=== PATIENT | male | born 1960 | race Caucasian/White ===

== ENCOUNTER 2016-05-13 17:42 | Emergency (ER) | payer MEDICAID ==
[2014-01-20 03:39] VITALS: BMI 24.7
[~2016-05-13 17:42] MED LIST: AMBIEN10 MG PO; ASPIRIN325 MG PO; LISINOPRIL10 MG GT; LISINOPRIL10 MG PO
[2016-05-13 18:18] LABS: BASOPHILS 0.7 % (0.0-2.0); EOSINOPHILS 0.2 % (0-7); HEMATOCRIT 37.7 % (42.0-54.0); HEMOGLOBIN 12.7 g/dL (13.5-17.5); IMMATURE GRANULOCYTES 0.5 % (0-5); LYMPHOCYTES 30.2 % (15-50); MCH 36.2 pg (26.0-34.0); MCHC 33.7 g/dL (31.0-37.0); MCV 107.4 fL (80.0-100.0); MEAN PLATELET VOLUME 9.5 fL (7.4-10.4); MONOCYTES 13.7 % (2-11); NEUTROPHILS 54.7 % (40-80); PLATELET COUNT 158 10x3/uL (130-400); RBC 3.51 10x6/uL (4.20-6.10); RDW 13.4 % (11.5-14.5); WBC 4.2 10x3/uL (4.8-10.8)
[2016-05-13 18:26] LABS: APTT 25.4 SECONDS (22.8-39.4); INR 1.03 (0.85-1.17); PROTIME 13.3 SECONDS (11.6-15.0)
[2016-05-13 18:32] LABS: ALBUMIN 4.3 g/dL (3.4-5.0); ALKALINE PHOSPHATASE 70 U/L (46-116); ALT (SGPT) 106 U/L (10-68); BILIRUBIN - TOTAL 1.44 mg/dL (0.2-1.3); CALC OSMOLALITY 277 mosm/kg (275-300); CALCIUM 8.7 mg/dL (8.5-10.1); CARBON DIOXIDE 22.5 mmol/L (21.0-32.0); CHLORIDE - SERUM 97 mmol/L (98-107); GLUCOSE 118 mg/dL (74-106); POTASSIUM - SERUM 3.2 mmol/L (3.5-5.1); PROTEIN - SERUM 7.5 g/dL (6.4-8.2); SODIUM 140 mmol/L (136-145); UREA NITROGEN 7 mg/dL (7-18); eGFR NON AFRICAN AMERICAN 82 mL/min (90-120)
== END 2016-05-13 20:06 | disposition home or self-care (01) ==
LOC: D.ER 17:42
PROVIDERS: Emergency Medicine
DX: I63.9 Cerebral infarction, unspecified (principal)

== ENCOUNTER 2018-04-02 20:48 | Inpatient (IN) | payer MEDICAID ==
[~2018-04-02] VITALS: Ht 182.9 cm; Wt 80.5 kg
[2018-04-02 21:35] VITALS: BP 147/90
[2018-04-02 23:50] LABS: HEMATOCRIT 30.9 % (42.0-54.0); HEMOGLOBIN 11.2 g/dL (13.5-17.5); LYMPHOCYTES 19.6 % (15-50); MCH 39.2 pg (26.0-34.0); MCHC 36.2 g/dL (31.0-37.0); MEAN PLATELET VOLUME 8.8 fL (7.4-10.4); NEUTROPHILS 69.4 % (40-80); PLATELET COUNT 133 10x3/uL (130-400); RBC 2.86 10x6/uL (4.20-6.10); RDW 14.6 % (11.5-14.5); WBC 6.3 10x3/uL (4.8-10.8)
[2018-04-03] VITALS (11 sets, daily range): BP systolic 109–159; BP diastolic 72–110; BMI 23.1
[2018-04-03 00:02] LABS: ALBUMIN 3.6 g/dL (3.4-5.0); ALKALINE PHOSPHATASE 68 U/L (46-116); ALT (SGPT) 32 U/L (10-68); BILIRUBIN - TOTAL 1.18 mg/dL (0.2-1.3); CALC OSMOLALITY 269 mosm/kg (275-300); CALCIUM 8.3 mg/dL (8.5-10.1); CARBON DIOXIDE 31.2 mmol/L (21.0-32.0); CHLORIDE - SERUM 92 mmol/L (98-107); GLUCOSE 98 mg/dL (74-106); PHOSPHOROUS 3.8 mg/dL (2.5-4.9); PROTEIN - SERUM 7.2 g/dL (6.4-8.2); SODIUM 135 mmol/L (136-145); UREA NITROGEN 13 mg/dL (7-18); eGFR NON AFRICAN AMERICAN 82 mL/min (90-120)
[2018-04-03 00:04] LABS: APPEARANCE CLEAR (CLEAR); BILIRUBIN NEGATIVE (NEGATIVE); COLOR YELLOW (YELLOW); GLUCOSE NEGATIVE (NEGATIVE); KETONE NEGATIVE (NEGATIVE); NITRITE NEGATIVE (NEGATIVE); PROTEIN NEGATIVE (NEGATIVE); SPECIFIC GRAVITY 1.015 (1.005-1.020); UDS - AMPHET POSITIVE QUAL (NEGATIVE); UDS - BARB NEGATIVE QUAL (NEGATIVE); UDS - BENZO POSITIVE QUAL (NEGATIVE); UDS - COCAINE NEGATIVE QUAL (NEGATIVE); UDS - OPIATE NEGATIVE QUAL (NEGATIVE); UDS - PCP NEGATIVE QUAL (NEGATIVE); UDS - THC NEGATIVE QUAL (NEGATIVE); UROBILINOGEN NORMAL (NORMAL)
[2018-04-03 00:05] LABS: MAGNESIUM - SERUM 0.8 mg/dL (1.8-2.4); POTASSIUM - SERUM 2.9 mmol/L (3.5-5.1)
[2018-04-03 00:06] LABS: BACTERIA FEW /hpf (NONE SEEN); EPITHELIAL CELLS 0-5 /hpf (0-5); HYALINE CAST 0-5 /lpf (NONE SEEN); MUCUS <1+ /lpf (NONE SEEN); RED CELLS - URINE 0-5 /hpf (0-5); WHITE CELLS - URINE 0-5 /hpf (0-5)
--- NOTE | 2018-04-03 01:28 | NUR ---
DIET COKE AND CUP OF ICE GARMENT FINISHER TO PT PER PT REQUEST. NO DISTRESS NOTED. DENEIS PAIN OR OTHER NEEDS AT THIS TIME.
--- NOTE | 2018-04-03 02:46 | NUR ---
STOP TIME ON BANANA BAG AND MAG IS [phone].
--- NOTE | 2018-04-03 02:47 | NUR ---
STOP TIME FOR NS
--- NOTE | 2018-04-03 03:05 | NUR ---
REC'D PT FROM ER VIA WHEELCHAIR AND ER STAFF. PT ALERT AND AWAKE, ANSWERS QUESTIONS BUT IS DISORIENTED TO SITUATION. STATES THERE ARE "11 POLICE OFFICERS OUT THERE TO GET ME" EXPLAINED TO PT THAT HE IS IN THE HOSPITAL AND THERE ARE NO POLICE HERE AT THIS TIME. PT STATES, "IM EXPERIENCING [place]" PT REASSURED THAT THERE ARE NO POLICE HERE FOR HIM, JUST RN X2. PT BEGINS TO CALM DOWN AND CONTINUES TO ANSWER QUESTIONS AND FOLLOW COMMANDS APPROPRIATLEY. PUPILS EQUAL AND REACTIVE, TONGUE MIDLINE, FISH NET MAKER EQUAL. RESPIRATIONS UNALBORED, LUNG SOUNDS CLEAR, SPO2 98 ON ROOM AIR. S1S2 HEARD, PERIPHERAL PULSES PRESENT. BOWEL SOUNDS ACTIVE IN ALL QUADRANTS. MOVES EXTREMITIES X4 AGAINST GRAVITY. VSS, NO C/O PAIN. ROOM VISIBLE FROM NURSES STATION.
[2018-04-03] MEDS ORDERED: XANAX1 MG PO (03:09)
--- NOTE | 2018-04-03 03:30 | NUR ---
PT STATES, "MY RN PRIOR AUTHORIZATION WILL BE HERE TOMORROW TO CLEAR THIS UP" PT REQUESTS RN PRIOR AUTHORIZATION NAME AND NUMBER TO BE ON CHART. NAME AND NUMBER OF RN PRIOR AUTHORIZATION OBTAINED FROM PT AND PLACED IN CHART- FRONT, INSIDE OF CHART.
--- NOTE | 2018-04-03 05:20 | NUR ---
PT SLEEPING QUIETLY WITH UNLABORED RESPIRATIONS. VSS, NO S/S OF PAIN OR DISTRESS. ROOM VISIBLE FROM NURSES STATION, CALL LIGHT WITHIN PT REACH. CPOC.
--- NOTE | 2018-04-03 06:51 | NUR ---
PT INCONTINENT OF URINE, COMPLETE LINEN CHANGE PROVIDED. VSS, DENIES PAIN AT THIS TIME. FRESH WATER TO BEDSIDE. PT REPOSITIONED FOR COMFORT. DENIES FURTHER NEEDS AT THIS TIME. ROOM VISIBLE FROM NURSES STATION, CALL LIGHT WITHIN PT REACH. CPOC.
--- NOTE | 2018-04-03 07:15 | NUR ---
REPORT RECEIVED. ASSESSMENT COMPLETE PER FLOW SHEET. REFER FOR FIDNINGS. DR DANI[employer] PSYCHOLOGY SPECIALIST AT BEDSIDE GIVEN UDPATE. NEW ORDERS RECEIVED. WILL CONTNIUE TO MONITOR
--- NOTE | 2018-04-03 09:22 | NUR ---
PT AMBULATED AROUND UNIT WITHOUT ASSISTANCE BACK TO BED WITHOUT DIFFICULTY. DENIES NEEDS WILL CONTINUE TO MONITOR
[2018-04-03 10:46] LABS: % SATURATION 49 % (15-55); IRON 119 ug/dl (35-150); TOTAL IRON BIND CAPACITY 239 ug/dl (260-445); UNSAT IRON BIND CAPACITY 120 ug/dl (150-375)
--- NOTE | 2018-04-03 11:15 | NUR ---
DR DANIELS AT BEDSIDE GIVEN UPDATE NO NEW ORDERS WILL CONTINUE TO MONITOR
--- NOTE | 2018-04-03 11:32 | NUR ---
REASSESSMENT COMPLETE PER FLOW SHEET. VSS. NO NEW CHANGES WILL CONTINUE TO MONITOR
--- NOTE | 2018-04-03 15:00 | NUR ---
REASSESSMENT COMPLETE PER FLOW SHEET. VSS. NO NEW CHANGES PT RESTING COMFORTABLY WLL CONTINUE TO MONITOR
--- NOTE | 2018-04-03 18:28 | MORECARE ---
CASE MANAGEMENT DISCHARGE SUMMARY PATIENT: ROSEMARIE DA SILVA UNIT: [id number] ADM DATE: 04/03/18 AGE: 57 : 62 SEX: M ROOM/BED: D.2310 AUTHOR: MELITA ENRIQUE PHYSICIAN: REFERRING PHYSICIAN: HILLARY DANIELS MD DATE OF SERVICE: 04/03/18 Discharge Plan Patient Name: ROSEMARIE DA SILVA [facility] : 1960 Planned Disposition: Anticipated Discharge Date: Discharge Date: Expected LOS: Initial Reviewer: [id number] Initial Review Date: 04/03/2018 Generated: 04/03/18 7:28 pm Comments DCP- Discharge Planning Updated by [email or web address]: Paola Alexander on 04/03/18 5:[address] CM attempted to speak to patient regarding d/c planning. Patient currently confused and no family available at this time.CM will continue to follow and assist as needed with discharge planning / needs. Patient Name: ROSEMARIE DA SILVA Page [phone] at 1828 All edits/amendments must be made on the electronic document DICTATION DATE: 04/03/181826 HEAVY MACHINERY OPERATOR: BECKY 04/03/181826 RPT#: [id number] DC DATE: STATUS: ADM IN [facility] [address] [place] [address] END OF REPORT
--- NOTE | 2018-04-03 19:00 | NUR ---
PT AOX4, FOLLOWS COMMANDS. GENERALIZED WEAKNESS PRESENT. RESPIRATIONS UNLABORED, SPO2 97 ON ROOM AIR. LUNG SOUNDS CLEAR. S1S2 HEARD, PERIPHERAL PULSES PRESENT. BOWEL SOUNDS ACTIVE IN ALL QUADRANTS. URINAL AT BEDSIDE. PT HAS TAKEN OFF ICU MONITORING EQUIPMENT, EQUIPMENT PLACED BACK ON PT. PT REPOSITIONED IN BED, PARTIAL LINEN CHANGE PROVIDED. VSS, PT DENIES FURTHER NEEDS AT THIS TIME. ROOM VISIBLE FROM NURSES STATION.
--- NOTE | 2018-04-03 20:00 | NUR ---
PT ATTEMPTING TO GET OUT OF BED WITHOUT ASSISTANCE. FALL PRECAUTION TEACHING COMPLETED AT THIS TIME, CALL LIGHT TEACHING COMPLETED AT THIS TIME. PT VERBALIZES UNDERSTANDING. PT ASSISTED TO BEDSIDE COMMODE, 400 MLS DEANA URINE VOIDED. PT ASSISTED BACK TO BED WITH A PARTIAL LINEN CHANGE COMPLETED. DIET COKE TO BEDSIDE PER REQUEST. VSS, DENIES FURTHER NEEDS AT THIS TIME. CALL LIGHT WITHIN PT REACH. ROOM VISIBLE FROM NURSES STATION, BED ALARM ON.
--- NOTE | 2018-04-03 21:00 | NUR ---
HS MEDS GIVEN, TOLERATED WELL. PT REPOSITIONED WITH MINIMAL ASSISTANCE. VSS, DENIES NEEDS AT THIS TIME. CALL LIGHT WITHIN PT REACH, ROOM VISIBLE FROM NURSES STATION, BED ALARM ON. CPOC.
--- NOTE | 2018-04-03 23:00 | NUR ---
REASSESSMENT COMPLETE, NO NEW CHANGES AT THIS TIME. PT REPOSITIONED SELF INDEPENDENTLY. VSS, NO S/S OF DISTRESS OR PAIN AT THIS TIME. DIET COKE PROVIDED PER REQUEST. DENIES FURTHER NEEDS. ROOM VISIBLE FROM NURSES STATION, CALL LIGHT WITHIN PT REACH, BED ALARM ON. CPOC.
[2018-04-04] VITALS (15 sets, daily range): BP systolic 109–159; BP diastolic 73–100
--- NOTE | 2018-04-04 01:00 | NUR ---
NO CHANGES AT THIS TIME. PT RESTING QUIETLY, VSS, NO COMPLAINTS.
--- NOTE | 2018-04-04 03:00 | NUR ---
REASSESSMENT COMPLETE, NO NEW CHANGES AT THIS TIME. PT AWAKE AND ALERT, FOLLOWS COMMANDS. REPOSITIONS SELF INDEPENDENTLY. WATER TO BEDSIDE. VSS, NO COMPLAINTS AT THIS TIME. CALL LIGHT WITHIN PT REACH, ROOM VISIBLE FROM NURSES STATION, BED ALARM ON. CPOC.
[2018-04-04 04:38] LABS: BASOPHILS 0.4 % (0-2); HEMATOCRIT 29.5 % (42.0-54.0); HEMOGLOBIN 10.1 g/dL (13.5-17.5); IMMATURE GRANULOCYTES 0.2 % (0-5); LYMPHOCYTES 25.7 % (15-50); MCHC 34.2 g/dL (31.0-37.0); MCV 108.1 fL (80.0-100.0); MONOCYTES 16.2 % (2-11); NEUTROPHILS 56.5 % (40-80); PLATELET COUNT 130 10x3/uL (130-400); RBC 2.73 10x6/uL (4.20-6.10); RDW 13.9 % (11.5-14.5); WBC 5.3 10x3/uL (4.8-10.8)
[2018-04-04 04:45] LABS: ALBUMIN 2.9 g/dL (3.4-5.0); ALKALINE PHOSPHATASE 71 U/L (46-116); ALT (SGPT) 27 U/L (10-68); BILIRUBIN - TOTAL 1.23 mg/dL (0.2-1.3); CALC OSMOLALITY 267 mosm/kg (275-300); CALCIUM 7.6 mg/dL (8.5-10.1); CARBON DIOXIDE 28.8 mmol/L (21.0-32.0); CHLORIDE - SERUM 97 mmol/L (98-107); CREATININE - SERUM 0.8 mg/dL (0.6-1.3); GLUCOSE 103 mg/dL (74-106); PHOSPHOROUS 3.3 mg/dL (2.5-4.9); POTASSIUM - SERUM 3.2 mmol/L (3.5-5.1); PROTEIN - SERUM 6.4 g/dL (6.4-8.2); SODIUM 135 mmol/L (136-145); eGFR NON AFRICAN AMERICAN > 90 mL/min (90-120)
[2018-04-04 04:53] LABS: MAGNESIUM - SERUM 1.8 mg/dL (1.8-2.4); UREA NITROGEN 8 mg/dL (7-18)
--- NOTE | 2018-04-04 05:00 | NUR ---
PT SLEEPING QUIETLY WITH UNLABORED RESPIRATIONS. VSS, NO S/S OF PAIN OR ACUTE DISTRESS, REPOSITIONS INDEPENDENTLY. CPOC.
--- NOTE | 2018-04-04 07:00 | NUR ---
SHIFT ASSESSMENT COMPLETED, PT CARE ASSUMED, MONITORS ON AND WORKING, VITALS STABLE. URINAL AT BEDSIDE, PT AWAKE AND ALERT. DENIES ANY COMPLAINT OF PAIN OR DISCOMFORT AT THIS TIME. CALL LIGHT WTIHIN REACH, WILL CONTINUE TO OBSERVE.
--- NOTE | 2018-04-04 09:00 | NUR ---
PT SITTING UP IN BED, AWAKE AND ALERT, EATING BREAKFAST, PT DENIES ANY COMPLAINT OF PAIN OR DISCOMFORT NOTED AT THIS TIME, CALL LIGHT WITHIN REACH, WILL CONTINUE TO OBSERVE.
[2018-04-04 10:19] LABS: FOLATE (FOLIC ACID) - SERUM >20.0 ng/mL (>3.0)
--- NOTE | 2018-04-04 11:00 | NUR ---
NO CHANGES, PT SITTING UP IN BED AWAKE AND ALERT, MONITORS ON AND WORKING. VITALS STABLE. SEE FLOW SHEET FOR FURTHER DETIALS, CALL LIGHT WITHIN REACH. WILL CONTINUE TO OBSERVE.
--- NOTE | 2018-04-04 13:00 | NUR ---
PT SITTING UP IN BED, AWAKE AND ALERT, NO SIGNS/SYMPTOMS OF PAIN OR DISCOMFORT NOTED, CALL LIGHT WTIHIN REACH, TRANSFER ORDERS REC'D TO MOVE PT TO FLOOR WHEN ROOM BECOMES AVAILABLE. WILL CONTINUE TO OBSERVE.
--- NOTE | 2018-04-04 14:20 | NUR ---
REPORT CALLED TO REC'ING NURSE ON MED 3, WILL TRANSFER PT TO FLOOR.
--- NOTE | 2018-04-04 19:20 | NUR ---
PT RESTING IN BED. ALERT TO NAME AND , YEAR TIME AND DATE. SITUATION, PLACE. PT HAS SOME WEAKNESS ON RIGHT SIDE. IV IN RIGHT HAND S/L. PT HAS NO S/S OF DISTRESS. DENIES ANY NEEDS. NAME AND DATE PLACED ONBOARD. WILL CPOC
--- NOTE | 2018-04-04 22:41 | NUR ---
PT IS AAO. BUT IS SEEING CNC MILL PROGRAMMER IN HALLWAY AND PEOPLE IN YELLOW OUTSIDE HIS WINDOW BUT HIS BLINDS ARE CLOSED. PT GIVEN ATIVAN PER REQUEST, RESTLESS AND ANXIETY NOTED. PT WATCHING TV NOW BUT WAS PACING IN ROOM. PT HAS NO S/S OF DISTRESS. WILL CPOC
--- NOTE | 2018-04-05 00:16 | NUR ---
PT LAYING IN BED. DIDNT WANT TO TURN OFF LIGHTS. STATES HE IS WAITING TO BE PICKED UP, WHEN ASKED BY WHO HE STATED THE POLICE. NURSE ASKED PT WHY WOULD PT THANK HE IS BEING PICKED UP, PT DIDNT KNOW. SPOKE WITH PT AND TOLD HIM THE MUSIC EXECUTIVE ARE NOT COMING. TURNED OFF LIGHTS AND SPOKE WITH PT ABOUT GOING TO BED. PT NOW LAYING IN BED WITH LIGHTS OFF. STILL HAS EYES OPENED LOOKING CONCERNED
--- NOTE | 2018-04-05 01:45 | NUR ---
PT WALKED UP TO DOOR WAY ANXIOUS SAID I HEARD THE IMPORT EXPORT CLERK ARE COMING TRYING TO TAKE YOU IN BUT THEY WONT DO THAT RIGHT? ABOUT 10 MINS BEFORE THAT PT THOUGHT THE IMPORT EXPORT CLERK WERE HIDING IN HIS CLOSET. REORIENTED PT AGAIN AND ASKED HIM TO GET SOME SLEEP. PT HAS NO S/S OF DISTRESS[facility]
--- NOTE | 2018-04-05 02:14 | NUR ---
PT ASLEEP, NO S/S OF DISTRESS. WILL CPOC
[2018-04-05 04:10] VITALS: BP 161/95
--- NOTE | 2018-04-05 05:41 | NUR ---
PT UP 2-3 TIMES. STILL AAO,BUT HAVING DELUSIONS OF FIELD GAUGER BEING HERE TO GET HIM, PT HAS NO S/S OF DISTRESS. BEDLOW AND CALL LIGHT IN REACH. PT LAYING IN BED RESTING CALMLY AT THIS TIME. WILL CPOC
--- NOTE | 2018-04-05 07:29 | NUR ---
ROUNDING DONE WITH PATIENT RESTING, AROUSES EASILY. RIGHT HAND PIV SEEN WITH NS INFUSING AT 50 CC/HR. DENIES NEEDS AT THIS TIME. VITAL SIGNS BEING TAKEN.
[2018-04-05 08:28] VITALS: BP 124/77
--- NOTE | 2018-04-05 09:30 | NUR ---
The patient is awake and he is talking low. He is pleasant and calm, he does have some shaking in his hands that is noticeable.
--- NOTE | 2018-04-05 09:55 | MORECARE ---
CASE MANAGEMENT DISCHARGE SUMMARY PATIENT: ROSEMARIE DA SILVA UNIT: [id number] ADM DATE: 04/03/18 AGE: 57 : 62 SEX: M ROOM/BED: D.1204 AUTHOR: IVA,DOC PHYSICIAN: REFERRING PHYSICIAN: HILLARY DANIELS MD DATE OF SERVICE: 04/05/18 Discharge Plan Patient Name: ROSEMARIE DA SILVA Facility: [facility]:[place] : 1960 Planned Disposition: Home Anticipated Discharge Date: Discharge Date: Expected LOS: Initial Reviewer: [email or web address] Initial Review Date: 04/05/2018 Generated: 04/05/18 10:54 am Comments DCP- Discharge Planning Updated by [email or web address]: Amira Collins on 04/05/18 8:[address] Patient Name: ROSEMARIE DA SILVA Admission Status: ER Accout number: [id number] Admission Date: 04-03-2018 : 1960 Admission Diagnosis: Attending: HILLARY DANIELS Current LOS: 2 Anticipated DC Date: Planned Disposition: Home Primary Insurance: MEDICAID [place] Discharge Planning Comments: CM MET WITH PATIENT ABOUT DC PLANNING/NEEDS. DENIES ANY NEEDS. STATES IS INDEPENDANT AT HOME. CM WILL FOLLOW AND ASSIST NEEDED WITH DC PLANNING/NEEDS. Crystal Gazer: Amira Collins DCP- Discharge Planning Updated by [id number]: Paola Alexander on 04/03/18 5:[address] CM attempted to speak to patient regarding d/c planning. Patient currently confused and no family available at this time.CM will continue to follow and assist as needed with discharge planning / needs. DCPIA - Discharge Planning Initial Assessment Updated by [email or web address]: Amira Collins on 04/05/18 9:50 am * Is the patient Alert and Oriented? Yes * PCP UNKNOWN * Pharmacy [facility] * List name and contact numbers for known caregivers / representatives who currently or will assist patient after discharge: TI DA SILVA [phone] ANGELITA HARRELL [phone] * Community resources currently utilized None * Additional services required to return to the preadmission environment? No * Can the patient safely return to the preadmission environment? Yes * Has this patient been hospitalized within the prior 30 days at any hospital? No Last DP export: 04/03/18 5:28 p Patient Name: ROSEMARIE DA SILVA Page [id number] at 0955 All edits/amendments must be made on the electronic document DICTATION DATE: 04/05/18953 SENIOR ORACLE DBA: BECKY 04/05/18953 RPT#: [id number] DC DATE: STATUS: ADM IN [facility] [address] [place] [address] END OF REPORT
--- NOTE | 2018-04-05 11:30 | NUR ---
The patient requests a diet cola, did provide a diet cola on ice. No other needs at this time.
[2018-04-05 11:55] LABS: MACROPHAGES BF 6 %; NEUT - BF 77 %
[2018-04-05 11:59] VITALS: BP 134/87
--- NOTE | 2018-04-05 13:30 | NUR ---
The patient requests a diet cola, provided him a diet cola, he denies any other needs, have not seen or heard any hallucinations or delusions from him today.
[2018-04-05 14:13] LABS: ERYTHROCYTE SEDIMENTATION RATE 20 mm/hr (0-20)
--- NOTE | 2018-04-05 15:00 | NUR ---
The only thing the patient requests is a diet cola, he is pleasant and he does enjoy talking.
[2018-04-05 16:24] VITALS: BP 105/64
--- NOTE | 2018-04-05 18:00 | NUR ---
The patient is calm, he keeps his door open and he watches everyone walk by and he calls for you from time to time. He takes short naps and then awakens easily. No delusions or hallucinations noted.
--- NOTE | 2018-04-05 19:26 | NUR ---
PT RESTING IN BED. PT IS AAO, SPEAKING ABOUT LAST NIGHT AND HOW REAL IT FELT, SAYS ITS CRAZY THAT THE EMERGENCY COMMUNICATIONS OFFICER WERE NOT HERE. PT UNDERSTANDS THAT IT WAS DELUSIONS. PT HAS NO S/S OF DISTRESS. RIGHT WRIST IV NS INFUSING ORDERED. PT ASKING FOR A SANDWICH. NO OTHER NEEDS. WILL CPOC
[2018-04-05 20:00] VITALS: BP 117/78
[2018-04-06] VITALS (7 sets, daily range): BP systolic 106–163; BP diastolic 68–100
--- NOTE | 2018-04-06 00:16 | NUR ---
PT RIGHT HAND IV CAME OUT AND LEAKED ON PT AND BED. HAD PT GET UP TO CHANGE BED. PT WAS RESITANT AT FIRST SAID HE IS TIRED AND WANTS TO DO IT WHEN HE GETS UP. TOLD HIM IF HE LETS NURSE CHANGE BED WILL WAIT A FEW HOURS TO RESITE IV. PT AGREED. BEDCHANGED PT WILL CALL FOR ASSIST WHEN NEEDED. WENT BACK TO SLEEP. WILL OBTAIN ACCESS ONCE AWAKE
--- NOTE | 2018-04-06 04:54 | NUR ---
PT ASLEEP. PT HAS BEEN ASLEEP THROUGH-OUT ENTIRE NIGHT UNLIKE LAST NIGHT WHEN PT SLEPT 15 MINS OFF AND ON. PT BEDLOW AND CALL LIGHT INREACH. NO S/S OF DISTRESS. WILL CPOC
[2018-04-06 07:18] LABS: CALC OSMOLALITY 280 mosm/kg (275-300); CALCIUM 8.2 mg/dL (8.5-10.1); CARBON DIOXIDE 25.7 mmol/L (21.0-32.0); CHLORIDE - SERUM 106 mmol/L (98-107); CREATININE - SERUM 0.8 mg/dL (0.6-1.3); GLUCOSE 115 mg/dL (74-106); POTASSIUM - SERUM 3.6 mmol/L (3.5-5.1); SODIUM 141 mmol/L (136-145); UREA NITROGEN 11 mg/dL (7-18); eGFR NON AFRICAN AMERICAN > 90 mL/min (90-120)
--- NOTE | 2018-04-06 07:26 | NUR ---
NEW IV PLACED IN LEFT HAND 20G 2 ATTEMPTS MVI BAG RETIMED AND STARTED. PT HAS NO S/S OF DISTRESS. WILL CPOC
[2018-04-06 07:35] LABS: HEMATOCRIT 26.9 % (42.0-54.0); HEMOGLOBIN 9.3 g/dL (13.5-17.5); MCH 37.3 pg (26.0-34.0); MCHC 34.6 g/dL (31.0-37.0); MEAN PLATELET VOLUME 10.7 fL (7.4-10.4); PLATELET COUNT 138 10x3/uL (130-400); RBC 2.49 10x6/uL (4.20-6.10); RDW 13.9 % (11.5-14.5)
[2018-04-06 08:13] LABS: EOSINOPHILS 6 % (0-7); LYMPHOCYTES 33 % (15-50); MONOCYTES 15 % (2-11); NEUTROPHILS 46 % (40-80); PLATELET ESTIMATE DECREASED
--- NOTE | 2018-04-06 11:24 | NUR ---
RESTING QUIETLY IN BED WITH EYES CLOSED. RESP EVEN,NONLABORED.
--- NOTE | 2018-04-06 19:19 | NUR ---
PT RESTING EYES CLOSED, NO SIGNS OF DISTRESS NOTED, CL IN REACH COREY CONTINUE TO MONITOR
--- NOTE | 2018-04-06 19:51 | NUR ---
PATIENT RESTING IN BED WITH NO S/S OF DISTRESS. BROUGHT PATIENT A DRINK AND ICE PER HIS REQUEST. PATIENT DENIES OTHER NEEDS AT THIS TIME. BED IN LOWEST POSITION AND CALL LIGHT WITHIN REACH. ENCOURAGED THE PATIENT TO CALL IF HE HAS NEEDS. WILL CONTINUE TO MONITOR.
[2018-04-07 05:30] VITALS: BP 131/84
[2018-04-07 06:48] LABS: BASOPHILS 0.6 % (0-2); EOSINOPHILS 2.6 % (0-7); HEMATOCRIT 27.2 % (42.0-54.0); HEMOGLOBIN 9.5 g/dL (13.5-17.5); LYMPHOCYTES 27.9 % (15-50); MCH 37.3 pg (26.0-34.0); MCHC 34.9 g/dL (31.0-37.0); MCV 106.7 fL (80.0-100.0); MEAN PLATELET VOLUME 9.4 fL (7.4-10.4); MONOCYTES 19.1 % (2-11); NEUTROPHILS 49.8 % (40-80); PLATELET COUNT 158 10x3/uL (130-400); RBC 2.55 10x6/uL (4.20-6.10); RDW 13.6 % (11.5-14.5); WBC 4.7 10x3/uL (4.8-10.8)
[2018-04-07 07:03] LABS: CALC OSMOLALITY 278 mosm/kg (275-300); CALCIUM 7.8 mg/dL (8.5-10.1); CARBON DIOXIDE 23.1 mmol/L (21.0-32.0); CHLORIDE - SERUM 107 mmol/L (98-107); CREATININE - SERUM 0.9 mg/dL (0.6-1.3); GLUCOSE 90 mg/dL (74-106); POTASSIUM - SERUM 3.5 mmol/L (3.5-5.1); SODIUM 141 mmol/L (136-145); eGFR NON AFRICAN AMERICAN > 90 mL/min (90-120)
[2018-04-07 07:04] LABS: UREA NITROGEN 8 mg/dL (7-18)
[2018-04-07 07:35] VITALS: BP 161/89
--- NOTE | 2018-04-07 08:14 | NUR ---
PT RESTING EYES CLOSED, NO SIGNS OF DISTRESS NOTED, WILL CONTINUE TO MONITOR, CL IN REACH
[2018-04-07 11:21] VITALS: BP 145/93
--- NOTE | 2018-04-07 13:38 | NUR ---
RESTING QUIETLY IN BED WITH EYES CLOSED. DENIES NEEDS. CONTINUE EMPLOYEE RELATIONS MANAGER PLAN OF CARE.
[2018-04-07 15:41] VITALS: BP 122/81
--- NOTE | 2018-04-07 16:12 | NUR ---
PT AAOX4 RESP EVEN AND NONLABORED, STATES "I HAVE NOT HAD ANY HALLUTIONS IN A COUPLE OF NIGHTS AND IM GLAD" NO NEEDS EXPRESSED AT THIS TIME CL IN REACH
[2018-04-07 20:00] VITALS: BP 164/98
--- NOTE | 2018-04-07 20:26 | NUR ---
PATIENT RESTING IN BED WITH NO S/S OF DISTRESS. ADMINISTERED MEDS PER ORDERS. PATIENT DENIES OTHER NEEDS AT THIS TIME. BED IN LOWEST POSITION AND CALL LIGHT WITHIN REACH. ENCOURAGED THE PATIENT TO CALL IF THEY HAVE NEEDS. WILL CONTINUE TO MONITOR.
[2018-04-08] VITALS: BP 149/90
[2018-04-08 04:00] VITALS: BP 151/94
[2018-04-08 07:12] LABS: BASOPHILS 0.3 % (0-2); EOSINOPHILS 0.1 % (0-7); HEMATOCRIT 27.2 % (42.0-54.0); HEMOGLOBIN 9.5 g/dL (13.5-17.5); IMMATURE GRANULOCYTES 0.1 % (0-5); MCHC 34.9 g/dL (31.0-37.0); MCV 105.8 fL (80.0-100.0); MEAN PLATELET VOLUME 9.3 fL (7.4-10.4); MONOCYTES 17.7 % (2-11); NEUTROPHILS 62.8 % (40-80); PLATELET COUNT 170 10x3/uL (130-400); RBC 2.57 10x6/uL (4.20-6.10); RDW 13.4 % (11.5-14.5)
[2018-04-08 07:29] LABS: CALC OSMOLALITY 274 mosm/kg (275-300); CARBON DIOXIDE 23.4 mmol/L (21.0-32.0); CHLORIDE - SERUM 107 mmol/L (98-107); CREATININE - SERUM 0.8 mg/dL (0.6-1.3); GLUCOSE 81 mg/dL (74-106); POTASSIUM - SERUM 3.7 mmol/L (3.5-5.1); SODIUM 139 mmol/L (136-145); UREA NITROGEN 7 mg/dL (7-18); eGFR NON AFRICAN AMERICAN > 90 mL/min (90-120)
[2018-04-08 07:31] LABS: WBC 7.3 10x3/uL (4.8-10.8)
[2018-04-08 09:03] VITALS: BP 162/95
--- NOTE | 2018-04-08 09:10 | NUR ---
TO MRI VIA W/C FOR MRI OF ANKLE.
--- NOTE | 2018-04-08 10:30 | NUR ---
RETURNED FROM MRI AND COMPLAINING OF NAUSEA AND ABDOMEN DISCOMFORT. PATIENT REFUSED SOME OF HIS MEDICATIONS BECAUSE HE SAYS THESE HURT HIS STOMACH. WILL CONTINUE TO MONITOR.
[2018-04-08 18:41] VITALS: BP 162/97
--- NOTE | 2018-04-08 19:33 | NUR ---
PATIENT RESTING IN BED WITH EYES CLOSED AND NO S/S OF DISTRESS. BED IN LOWEST POSITION AND CALL LIGHT WITHIN REACH. WILL CONTINUE TO MONITOR.
[2018-04-08 20:00] VITALS: BP 152/94
--- NOTE | 2018-04-08 21:37 | NUR ---
PAGED DR. CIFUENTES IN REGARDS TO THE ICU NURSE NOT BEING ABLE TO OBTAIN IV ACCESS
[2018-04-09] VITALS: BP 146/78; BP 172/107
[2018-04-09 04:00] VITALS: BP 148/91
--- NOTE | 2018-04-09 04:13 | NUR ---
RESTARTED IV WITH 20GA TO LEFT FORMARM TIMES ONE STICK OPSITE APPLIED
[2018-04-09 07:55] VITALS: BP 173/109
[2018-04-09 08:02] LABS: CALCIUM 8.2 mg/dL (8.5-10.1); CHLORIDE - SERUM 102 mmol/L (98-107); CREATININE - SERUM 0.8 mg/dL (0.6-1.3); GLUCOSE 93 mg/dL (74-106); SODIUM 139 mmol/L (136-145); eGFR NON AFRICAN AMERICAN > 90 mL/min (90-120)
[2018-04-09 08:11] LABS: BASOPHILS 0.5 % (0-2); EOSINOPHILS 0.7 % (0-7); HEMATOCRIT 30.4 % (42.0-54.0); HEMOGLOBIN 10.5 g/dL (13.5-17.5); IMMATURE GRANULOCYTES 0.1 % (0-5); LYMPHOCYTES 21.1 % (15-50); MCH 37.4 pg (26.0-34.0); MCHC 34.5 g/dL (31.0-37.0); NEUTROPHILS 57.6 % (40-80); RBC 2.81 10x6/uL (4.20-6.10); RDW 13.6 % (11.5-14.5); WBC 7.4 10x3/uL (4.8-10.8)
[2018-04-09 08:12] LABS: CALC OSMOLALITY 274 mosm/kg (275-300); POTASSIUM - SERUM 3.1 mmol/L (3.5-5.1); UREA NITROGEN 5 mg/dL (7-18)
[2018-04-09 08:14] LABS: MCV 108.2 fL (80.0-100.0); PLATELET COUNT 225 10x3/uL (130-400)
[2018-04-09 12:17] VITALS: BP 140/90
[2018-04-09 16:02] VITALS: BP 146/88
--- NOTE | 2018-04-09 19:14 | NUR ---
CALLED TIP AND NOTIFIED HER THAT PT NEEDS A LACE BRACE.
--- NOTE | 2018-04-09 19:14 | NUR ---
PATIENT RESTING IN BED AND DENIES NEEDS AT THIS TIME. NO S/S OF DISTRESS. BED IN LOWEST POSITION AND CALL LIGHT WITHIN REACH. ENCOURAGED THE PATIENT TO CALL IF HE HAS NEEDS. WILL CONTINUE TO MONITOR.
[2018-04-09 20:00] VITALS: BP 119/84
[2018-04-10] VITALS: BP 159/81
[2018-04-10 04:00] VITALS: BP 100/86
[2018-04-10 07:22] LABS: BASOPHILS 0.7 % (0-2); EOSINOPHILS 1.8 % (0-7); HEMATOCRIT 27.1 % (42.0-54.0); HEMOGLOBIN 9.2 g/dL (13.5-17.5); IMMATURE GRANULOCYTES 0.2 % (0-5); MCH 36.8 pg (26.0-34.0); MCHC 33.9 g/dL (31.0-37.0); MCV 108.4 fL (80.0-100.0); MEAN PLATELET VOLUME 9.8 fL (7.4-10.4); MONOCYTES 21.2 % (2-11); NEUTROPHILS 54.1 % (40-80); PLATELET COUNT 225 10x3/uL (130-400); RDW 13.6 % (11.5-14.5)
[2018-04-10 07:34] VITALS: BP 133/79
[2018-04-10 07:37] LABS: WBC 5.5 10x3/uL (4.8-10.8)
[2018-04-10 07:46] LABS: CALC OSMOLALITY 280 mosm/kg (275-300); CALCIUM 7.9 mg/dL (8.5-10.1); CARBON DIOXIDE 27.7 mmol/L (21.0-32.0); CHLORIDE - SERUM 107 mmol/L (98-107); GLUCOSE 99 mg/dL (74-106); POTASSIUM - SERUM 3.8 mmol/L (3.5-5.1); SODIUM 142 mmol/L (136-145); eGFR NON AFRICAN AMERICAN 82 mL/min (90-120)
[2018-04-10 07:48] LABS: UREA NITROGEN 7 mg/dL (7-18)
[2018-04-10 09:12] VITALS: Ht 182.9 cm; Wt 80.5 kg
--- NOTE | 2018-04-10 11:11 | NUR ---
CALLED [employer] AND SPOKE WITH SUPRIYA GREY HER THAT I NEED LACE BRACE FOR PT. FAXED ORDER TO 1382.
--- NOTE | 2018-04-10 11:17 | NUR ---
ASKED PT IF HE WANTED TO GET IN THE SHOWER, PT STATED THAT HE WOULD LATER, HE IS WAITING ON HIS FRIEND TO BRING HIM A RAZOR BECAUSE HE DOES NOT LIKE THE ONES WE HAVE HER AT THE HOSPITAL. PT DENIES ANY NEEDS AT THIS TIME. CALL LIGHT IN REACH,NAD NOTED, WILL CONTINUE TO MONITOR.
[2018-04-10 12:23] VITALS: BP 126/85
--- NOTE | 2018-04-10 12:46 | NUR ---
PT FIXING TO GET IN THE SHOWER, PROVIDED PT WITH SUPPLIES NEEDED TO SHOWER. COMPLETE LINEN CHANGE DONE AT THIS TIME.
[2018-04-10 16:03] VITALS: BP 148/91
[2018-04-10 20:00] VITALS: BP 112/66; BP 124/78
--- NOTE | 2018-04-10 21:00 | NUR ---
PT RESTING IN BED SLEEPING AND EASILY AWAKEN. RR- EVEN AND UNLABORED NO S/S OF DISTRESS. BED LOW CALL LIGHT WITHIN REACH. WILL CONTIN UE TO MONITOR.
[2018-04-11] VITALS: BP 146/71
--- NOTE | 2018-04-11 01:46 | NUR ---
PT RESTING IN BED WITH EYES CLOSED. RR-EVEN AND UNLABORED. BED LOW CALL LIGHT WITHIN REACH. WILL CONTINUE TO MONITOR.
--- NOTE | 2018-04-11 03:19 | NUR ---
LYING IN BED WITH EYES CLOSED. RESP EVEN AND NONLABORED. NO DISTRESS. CL IN REACH.
[2018-04-11 04:00] VITALS: BP 128/78
--- NOTE | 2018-04-11 04:06 | NUR ---
PT RESTING IN BED WITH EYES CLOSED. RR-EVEN AND UNLABORED. BED LOW CALL LIGHT WITHIN REACH. WILL CONTINUE TO MONITOR.
[2018-04-11 07:13] LABS: CALC OSMOLALITY 280 mosm/kg (275-300); CALCIUM 7.5 mg/dL (8.5-10.1); CARBON DIOXIDE 26.8 mmol/L (21.0-32.0); CHLORIDE - SERUM 109 mmol/L (98-107); CREATININE - SERUM 0.9 mg/dL (0.6-1.3); GLUCOSE 92 mg/dL (74-106); MAGNESIUM - SERUM 1.2 mg/dL (1.8-2.4); POTASSIUM - SERUM 3.6 mmol/L (3.5-5.1); SODIUM 142 mmol/L (136-145); UREA NITROGEN 8 mg/dL (7-18); eGFR NON AFRICAN AMERICAN > 90 mL/min (90-120)
[2018-04-11 07:21] LABS: BASOPHILS 0.9 % (0-2); EOSINOPHILS 1.6 % (0-7); HEMATOCRIT 25.2 % (42.0-54.0); HEMOGLOBIN 8.6 g/dL (13.5-17.5); IMMATURE GRANULOCYTES 0.2 % (0-5); LYMPHOCYTES 20.4 % (15-50); MCH 36.8 pg (26.0-34.0); MCHC 34.1 g/dL (31.0-37.0); MCV 107.7 fL (80.0-100.0); MEAN PLATELET VOLUME 9.4 fL (7.4-10.4); MONOCYTES 16.3 % (2-11); NEUTROPHILS 60.6 % (40-80); PLATELET COUNT 266 10x3/uL (130-400); RBC 2.34 10x6/uL (4.20-6.10); RDW 13.3 % (11.5-14.5); WBC 5.6 10x3/uL (4.8-10.8)
[2018-04-11 07:53] VITALS: BP 122/74
--- NOTE | 2018-04-11 08:03 | NUR ---
ROUNDING DONE WITH PATIENT AROUSING FROM SLEEP. DENIES ANY NEEDS AT THIS TIME. LEFT FA PIV SEEN WITH NS INFUSING AT 100 CC/HR. ON EP, K+ IS 3.6, MAG IS 1.2. WILL COVER THIS WITH ORAL SUPPLEMENTS. ON ROOM AIR.
--- NOTE | 2018-04-11 08:23 | NUR ---
I CALLED ASHLEY IN PHARMACY FOR MAG OX TABS.
[2018-04-11 11:32] VITALS: BP 88/44
--- NOTE | 2018-04-11 12:48 | NUR ---
DENIES NEEDS AT THIS TIME. WILL CONTINUE TO FOLLOW. PATIENT HAS BEEN SLEEPING MOST OF SHIFT SO FAR.
[2018-04-11 16:04] VITALS: BP 126/81
--- NOTE | 2018-04-11 20:00 | NUR ---
PT RESTING IN BED WITH EYES CLOSED. RR EVEN AND UNLABORED. NO S/S OF DISTRESS VITALS STABLE. BED LOW CALL LIGHT WITHIN REACH. WILL CONTINUE TO MONITOR.
[2018-04-11 20:29] VITALS: BP 129/80
[2018-04-12 00:52] VITALS: BP 142/82
--- NOTE | 2018-04-12 00:58 | NUR ---
LYING IN BED WITH HOB ELEVATED. EYES CLOSED. RESP EVEN AND NONLABORED. NO DISTRESS. SR ELEVATED X2. CL IN REACH.
--- NOTE | 2018-04-12 02:33 | NUR ---
PT RESTING IN BED WITH EYES CLOSED RR EVEN AND UNLABORED. NS GOING AT 100ML/HR. NO S/S OF DISTRESS. BED LOW, DOOR OPEN, CALL LIGHT WITHIN REACH. WILL CONTINUE TO MONITOR.
[2018-04-12 04:00] VITALS: BP 136/74
--- NOTE | 2018-04-12 07:27 | NUR ---
REPORT RECEIVED. WILL CONTINUE WITH POC. PT CURRENTLY LYING SUPINE. CALL LIGHT W/I REACH. SIDE RAIL UP X2. PT IS AAO AND UP AD MELIDA. RR EVEN AND UNLABORED ON RA. NS INFUSING @100ML/HR VIA L.FOR PIV. PT DENIES ANY NEEDS AT THIS TIME. WILL CTM.
[2018-04-12 07:41] LABS: BASOPHILS 0.7 % (0-2); EOSINOPHILS 1.6 % (0-7); HEMATOCRIT 25.4 % (42.0-54.0); HEMOGLOBIN 8.7 g/dL (13.5-17.5); IMMATURE GRANULOCYTES 0.1 % (0-5); MCH 36.6 pg (26.0-34.0); MCHC 34.3 g/dL (31.0-37.0); MCV 106.7 fL (80.0-100.0); MEAN PLATELET VOLUME 9.7 fL (7.4-10.4); MONOCYTES 16.8 % (2-11); NEUTROPHILS 58.8 % (40-80); PLATELET COUNT 286 10x3/uL (130-400); RBC 2.38 10x6/uL (4.20-6.10); RDW 13.4 % (11.5-14.5)
[2018-04-12 07:57] LABS: CALC OSMOLALITY 279 mosm/kg (275-300); CALCIUM 7.8 mg/dL (8.5-10.1); CARBON DIOXIDE 24.1 mmol/L (21.0-32.0); CHLORIDE - SERUM 108 mmol/L (98-107); CREATININE - SERUM 0.9 mg/dL (0.6-1.3); GLUCOSE 102 mg/dL (74-106); MAGNESIUM - SERUM 1.3 mg/dL (1.8-2.4); POTASSIUM - SERUM 3.3 mmol/L (3.5-5.1); SODIUM 141 mmol/L (136-145); UREA NITROGEN 10 mg/dL (7-18); eGFR NON AFRICAN AMERICAN > 90 mL/min (90-120)
[2018-04-12 08:50] VITALS: BP 141/85
[2018-04-12] MEDS ORDERED: CARAFATE1 G PO (10:22)
[2018-04-12] MEDS ORDERED: PROTONIX40 MG PO (10:22)
--- NOTE | 2018-04-12 11:53 | NUR ---
PER MAKI/RHIANNON WITH ORTHO VIA PHONE NO NEED FOR ANTIBIOTICS OR INDOCIN.
--- NOTE | 2018-04-12 12:19 | MORECARE ---
CASE MANAGEMENT DISCHARGE SUMMARY PATIENT: ROSEMARIE DA SILVA UNIT: [id number] ADM DATE: 04/03/18 AGE: 57 : 62 SEX: M ROOM/BED: D.1204 AUTHOR: MELITA ENRIQUE PHYSICIAN: REFERRING PHYSICIAN: HILLARY DANIELS MD DATE OF SERVICE: 04/12/18 Discharge Plan Patient Name: ROSEMARIE DA SILVA Facility: [facility]:[place] : 1960 Planned Disposition: Home Anticipated Discharge Date: Discharge Date: Expected LOS: Initial Reviewer: [email or web address] Initial Review Date: 04/05/2018 Generated: 04/12/18 1:19 pm Comments DCP- Discharge Planning Updated by [id number]: Amira Collins on 04/12/18 11:[address] Patient Name: ROSEMARIE DA SILVA Admission Status: ER Accout number: [id number] Admission Date: 04-03-2018 : 1960 Admission Diagnosis:ALCOHOL DEPENDENCE WITH WITHDRAWAL DELIRIUM Attending: HILLARY DANIELS Current LOS: 9 Anticipated DC Date: Planned Disposition: Home Primary Insurance: MEDICAID [place] Discharge Planning Comments: CM SPOKE WITH BIRDIE JADE AT THE [facility] AND THEY STATE PATIENT HAS BEEN DC'D FROM THEM AND IS NOT ON A COURT ORDER. CM SPOKE WITH PATIENT AND HE STATES HIS SISTER IS PICKING HIM UP TODAY WHEN DISCHARGED. Dump Truck Driver Off Highway: Amira Collins DCP- Discharge Planning Updated by [email or web address]: Amira Collins on 04/05/18 8:[address] Patient Name: ROSEMARIE DA SILVA Admission Status: ER Accout number: [id number] Admission Date: 04-03-2018 : 1960 Admission Diagnosis: Attending: HILLARY DANIELS Current LOS: 2 Anticipated DC Date: Planned Disposition: Home Primary Insurance: MEDICAID [place] Discharge Planning Comments: CM MET WITH PATIENT ABOUT DC PLANNING/NEEDS. DENIES ANY NEEDS. STATES IS INDEPENDANT AT HOME. CM WILL FOLLOW AND ASSIST NEEDED WITH DC PLANNING/NEEDS. Dump Truck Driver Off Highway: Amira Collins DCP- Discharge Planning Updated by [email or web address]: Paola Alexander on 04/03/18 5:[address] CM attempted to speak to patient regarding d/c planning. Patient currently confused and no family available at this time.CM will continue to follow and assist as needed with discharge planning / needs. DCPIA - Discharge Planning Initial Assessment Updated by [id number]: Amira Collins on 04/05/18 9:50 am * Is the patient Alert and Oriented? Yes * PCP UNKNOWN * Pharmacy [facility] * List name and contact numbers for known caregivers / representatives who currently or will assist patient after discharge: TI DA SILVA [phone] ANGELITA HARRELL [phone] * Community resources currently utilized None * Additional services required to return to the preadmission environment? No * Can the patient safely return to the preadmission environment? Yes * Has this patient been hospitalized within the prior 30 days at any hospital? No Last DP export: 04/05/18 8:54 a Patient Name: ROSEMARIE D ASILVA Page [id number] at 1219 All edits/amendments must be made on the electronic document DICTATION DATE: 04/12/18 121 FLOOR RENOVATOR: BECKY 04/12/18 1219 RPT#: [id number] DC DATE: STATUS: ADM IN [facility] [address] [place] [address] END OF REPORT
--- NOTE | 2018-04-12 14:47 | NUR ---
RECEIVED PT DISCHARGE PAPERWORK. CHECKED PT VS AND FOUND HE WAS HYPERTENSIVE SYSTOLIC OF 170 WELL SPIKED A FEVER OF 101. HELD DISCHARGE AND ADMINISTERED ORDERED DOSE OF TYLENOL. RECHECKED BP 30 MINUTES LATER AND FOUND THAT IT HAD DROPPED TO 136/78. CHECKED TWICE TO CONFIRM. RECHECKED TEMP 45 MINUTES LATER AND THE PT ORAL TEMP WAS 98.7. WILL FOLLOW THROUGH WITH DISCHARGE.
--- NOTE | 2018-04-12 16:51 | NUR ---
PT DISCHARGED HOME VIA WHEELCHAIR WITH FAMILY. PIV REMOVED WITH CATHETER TIP FULLY INTACT. PT SIGNED PROPER DISCHARGE INSTRUCTION AND REMOVED ALL VALUABLES FROM THE ROOM.
--- NOTE | 2018-04-14 08:56 | MORECARE ---
CASE MANAGEMENT DISCHARGE SUMMARY PATIENT: ROSEMARIE DA SILVA UNIT: [id number] ADM DATE: 04/03/18 AGE: 57 : 62 SEX: M ROOM/BED: D.1204 AUTHOR: MELITA ENRIQUE PHYSICIAN: REFERRING PHYSICIAN: HILLARY DANIELS MD DATE OF SERVICE: 04/14/18 Discharge Plan Patient Name: ROSEMARIE DA SILVA Facility: [facility]:[place] : 1960 Planned Disposition: Home Anticipated Discharge Date: Discharge Date: 04/12/2018 Expected LOS: Initial Reviewer: [email or web address] Initial Review Date: 04/05/2018 Generated: 04/14/18 9:56 am Comments DCP- Discharge Planning Updated by [id number]: Amira Collins on 04/12/18 11:[address] Patient Name: ROSEMARIE DA SILVA Admission Status: ER Accout number: [id number] Admission Date: 04-03-2018 : 1960 Admission Diagnosis:ALCOHOL DEPENDENCE WITH WITHDRAWAL DELIRIUM Attending: HILLARY DANIELS Current LOS: 9 Anticipated DC Date: Planned Disposition: Home Primary Insurance: MEDICAID [place] Discharge Planning Comments: CM SPOKE WITH BIRDIE JADE AT THE [facility] AND THEY STATE PATIENT HAS BEEN DC'D FROM THEM AND IS NOT ON A COURT ORDER. CM SPOKE WITH PATIENT AND HE STATES HIS SISTER IS PICKING HIM UP TODAY WHEN DISCHARGED. Home Furnishings Sales Representative: Amira Collins DCP- Discharge Planning Updated by [id number]: Amira Collins on 04/05/18 8:[address] Patient Name: ROSEMARIE DA SILVA Admission Status: ER Accout number: [id number] Admission Date: 04-03-2018 : 1960 Admission Diagnosis: Attending: HILLARY DANIELS Current LOS: 2 Anticipated DC Date: Planned Disposition: Home Primary Insurance: MEDICAID [place] Discharge Planning Comments: CM MET WITH PATIENT ABOUT DC PLANNING/NEEDS. DENIES ANY NEEDS. STATES IS INDEPENDANT AT HOME. CM WILL FOLLOW AND ASSIST NEEDED WITH DC PLANNING/NEEDS. Home Furnishings Sales Representative: Amira Collins DCP- Discharge Planning Updated by [email or web address]: Paola Alexander on 04/03/18 5:[address] CM attempted to speak to patient regarding d/c planning. Patient currently confused and no family available at this time.CM will continue to follow and assist as needed with discharge planning / needs. DCPIA - Discharge Planning Initial Assessment Updated by [email or web address]: Amira Collins on 04/05/18 9:50 am * Is the patient Alert and Oriented? Yes * PCP UNKNOWN * Pharmacy [facility] * List name and contact numbers for known caregivers / representatives who currently or will assist patient after discharge: TI DA SILVA [phone] ANGELITA HARRELL [phone] * Community resources currently utilized None * Additional services required to return to the preadmission environment? No * Can the patient safely return to the preadmission environment? Yes * Has this patient been hospitalized within the prior 30 days at any hospital? No Last DP export: 04/12/18 11:19 a Patient Name: ROSEMARIE DA SILVA Page [phone] at 0856 All edits/amendments must be made on the electronic document DICTATION DATE: 04/14/1856 MAINTENANCE WORKER SWIMMING POOL: BECKY 04/14/18 0856 RPT#: [id number] DC DATE:04/12/18 STATUS: DIS IN [facility] [address] [place] [address] END OF REPORT
== END 2018-04-12 16:52 | disposition home or self-care (01) | DRG 896 ==
LOC: D.ER 20:48 → D.ICU 04-03 01:13 → D.EDHOLD 04-03 01:13 → D.M3 04-03 01:13 → D.ICU 04-03 02:26 → D.M3 04-04 14:43
PROVIDERS: Family Medicine; Orthopaedic Surgery; ADMIT Internal Medicine Nephrology
PROC: 0S9F3ZZ Drainage of Right Ankle Joint, Percutaneous Approach (ICD-10-PCS; principal; 2018-04-05)
DX: F10.231 Alcohol dependence with withdrawal delirium (principal); G93.41 Metabolic encephalopathy; I10 Essential (primary) hypertension; E83.42 Hypomagnesemia; E87.6 Hypokalemia; F22 Delusional disorders; F17.213 Nicotine dependence, cigarettes, with withdrawal; F15.10 Other stimulant abuse, uncomplicated; M12.571 Traumatic arthropathy, right ankle and foot; T14.90XS Injury, unspecified, sequela; M20.12 Hallux valgus (acquired), left foot; M20.11 Hallux valgus (acquired), right foot; M20.42 Other hammer toe(s) (acquired), left foot; M20.41 Other hammer toe(s) (acquired), right foot; Z86.73 Personal history of transient ischemic attack (TIA), and cerebral infarction without residual deficits

== ENCOUNTER 2018-06-24 14:48 | Inpatient (IN) | payer MEDICAID ==
[~2018-06-24] VITALS: Ht 182.9 cm; Wt 74.8 kg
[~2018-06-24 14:48] MED LIST changes: +CARAFATE1 G PO; +PROTONIX40 MG PO; +XANAX1 MG PO
[2018-06-24 15:04] LABS: EOSINOPHILS 0.2 % (0-7); HEMATOCRIT 37.6 % (42.0-54.0); HEMOGLOBIN 13.1 g/dL (13.5-17.5); IMMATURE GRANULOCYTES 0.2 % (0-5); LYMPHOCYTES 40.5 % (15-50); MCH 36.3 pg (26.0-34.0); MCHC 34.8 g/dL (31.0-37.0); MCV 104.2 fL (80.0-100.0); MEAN PLATELET VOLUME 9.3 fL (7.4-10.4); MONOCYTES 11.1 % (2-11); PLATELET COUNT 200 10x3/uL (130-400); RBC 3.61 10x6/uL (4.20-6.10); RDW 13.8 % (11.5-14.5)
[2018-06-24 15:22] LABS: ALBUMIN 3.8 g/dL (3.4-5.0); ALKALINE PHOSPHATASE 72 U/L (46-116); ALT (SGPT) 57 U/L (10-68); CALC OSMOLALITY 274 mosm/kg (275-300); CALCIUM 8.5 mg/dL (8.5-10.1); CHLORIDE - SERUM 96 mmol/L (98-107); GLUCOSE 130 mg/dL (74-106); POTASSIUM - SERUM 3.2 mmol/L (3.5-5.1); PROTEIN - SERUM 7.5 g/dL (6.4-8.2); SODIUM 137 mmol/L (136-145); UREA NITROGEN 9 mg/dL (7-18); eGFR NON AFRICAN AMERICAN 82 mL/min (90-120)
[2018-06-24 15:29] LABS: MAGNESIUM - SERUM 1.2 mg/dL (1.8-2.4)
--- NOTE | 2018-06-24 16:13 | NUR ---
PATIENT NOW STATES HE IS HAVING SUICIDAL IDEATIONS, DOES NOT WANT TO LIVE ANY MORE. PATIENT STATES HE IS GOING THROUGH A DIVORCE. PATIENT MOVED TO ROOM 21.
--- NOTE | 2018-06-24 19:34 | NUR ---
CLEAN CATCH URINE COLLECTED ET SENT TO LAB.
--- NOTE | 2018-06-24 19:47 | NUR ---
SPOKE WITH ERIN CRAFT- STATES THE NS BOLUS AND MAG INFUSION ARE REPEAT ORDERS AND TO HOLD. WILL GIVE POTASSIUM. URINE TO LAB.
--- NOTE | 2018-06-24 19:58 | NUR ---
PT RESTING QUIETLY. AWAKENS EASILY. POTASSIUM 40MEQ GIVEN PO. OFFERED FOOD- STATES "MAYBE LATER". WILL MONITOR.
[2018-06-24 20:31] LABS: UDS - AMPHET NEGATIVE QUAL (NEGATIVE); UDS - BARB NEGATIVE QUAL (NEGATIVE); UDS - BENZO NEGATIVE QUAL (NEGATIVE); UDS - COCAINE NEGATIVE QUAL (NEGATIVE); UDS - OPIATE NEGATIVE QUAL (NEGATIVE); UDS - PCP NEGATIVE QUAL (NEGATIVE); UDS - THC NEGATIVE QUAL (NEGATIVE)
[2018-06-24 20:34] LABS: APPEARANCE CLEAR (CLEAR); BILIRUBIN NEGATIVE (NEGATIVE); COLOR YELLOW (YELLOW); GLUCOSE NEGATIVE (NEGATIVE); KETONE NEGATIVE (NEGATIVE); NITRITE NEGATIVE (NEGATIVE); PROTEIN TRACE mg/dL (NEGATIVE); UROBILINOGEN NORMAL (NORMAL)
--- NOTE | 2018-06-24 21:00 | NUR ---
BANANA BAG COMPLETE.
--- NOTE | 2018-06-24 22:30 | NUR ---
PT REQUESTING LIBRIUM. SPOKE TO ERIN CRAFT- STATES WANTS TO SEE WHAT HIS ETOH LEVEL IS.
[2018-06-25] VITALS (7 sets, daily range): BP systolic 126–165; BP diastolic 62–113
--- NOTE | 2018-06-25 00:06 | NUR ---
PT STATES HAVING EARLY D/T'S- FEELS "SHAKY"- ALSO C/O CHEST PAINS- V/S STABLE. EKG ORDERED.
--- NOTE | 2018-06-25 00:15 | NUR ---
ATIVAN 1MG IV. PT STATES STILL HAVING THOUGHTS OF HURTING HIMSELF. ZORAIDAICH TRAY TO PATIENT.
--- NOTE | 2018-06-25 00:42 | NUR ---
PT STATES FEELING "A LITTLE BETTER"- REQUESTING SECOND SERVING OF FRUIT. GIVEN.
--- NOTE | 2018-06-25 01:08 | NUR ---
UP TO RESTROOM- NO DISTRESS.
--- NOTE | 2018-06-25 01:48 | NUR ---
RESTING QUIETLY. NO DISTRESS. WILL MONITOR.
--- NOTE | 2018-06-25 03:43 | NUR ---
UP TO BATHROOM- BACK TO BED. REPEAT ALCOHOL ORDERED.
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
[2018-06-25 06:28] LABS: CALC OSMOLALITY 281 mosm/kg (275-300); CALCIUM 8.2 mg/dL (8.5-10.1); CARBON DIOXIDE 24.3 mmol/L (21.0-32.0); CHLORIDE - SERUM 102 mmol/L (98-107); GLUCOSE 94 mg/dL (74-106); MAGNESIUM - SERUM 1.5 mg/dL (1.8-2.4); SODIUM 142 mmol/L (136-145); UREA NITROGEN 9 mg/dL (7-18); eGFR NON AFRICAN AMERICAN 82 mL/min (90-120)
--- NOTE | 2018-06-25 09:00 | NUR ---
PT ARRIVED TO FLOOR FROM ER VIA WHEELCHAIR. ADMISSION ASSESSMENT PERFORMED. VSS AND WNL. DENIES ANY OTHER NEEDS AT THIS TIME, WILL CONT TO FOLLOW POC
--- NOTE | 2018-06-25 10:20 | NUR ---
PT IS SHAKING AND HR IS 110. PRN ATIVAN GIVEN ORDERED
--- NOTE | 2018-06-25 13:55 | NUR ---
PT IS SHAKING AND SWEATING. PRN ATIVAN GIVEN ORDERED. WILL CONT TO FOLLOW POC
[2018-06-25 14:05] LABS: BASOPHILS 0.5 % (0-2); EOSINOPHILS 0 % (0-7); HEMATOCRIT 33.6 % (42.0-54.0); HEMOGLOBIN 11.4 g/dL (13.5-17.5); MCH 35.6 pg (26.0-34.0); MCHC 33.9 g/dL (31.0-37.0); MEAN PLATELET VOLUME 9.3 fL (7.4-10.4); NEUTROPHILS 69.5 % (40-80); RDW 13.7 % (11.5-14.5); WBC 5.7 10x3/uL (4.8-10.8)
[2018-06-25 14:12] LABS: PLATELET COUNT 131 10x3/uL (130-400)
[2018-06-25 14:20] LABS: ALBUMIN 3.4 g/dL (3.4-5.0); ANION GAP 12.3 mmol/L (8-16); BILIRUBIN - TOTAL 3.1 mg/dL (0.2-1.3); CARBON DIOXIDE 28.4 mmol/L (21.0-32.0); MAGNESIUM - SERUM 1.4 mg/dL (1.8-2.4); PROTEIN - SERUM 6.7 g/dL (6.4-8.2)
[2018-06-25 14:21] LABS: CREATININE - SERUM 1.3 mg/dL (0.6-1.3); POTASSIUM - SERUM 3.7 mmol/L (3.5-5.1)
--- NOTE | 2018-06-25 15:25 | NUR ---
PT ACCIDENTLY PULLED OUT PIV TO RIGHT FA. CATHETER TIP INTACT. 20G PIV INSERTED X1 ATTEMPT TO PT LEFT HAND. TOLERATED WELL. WILL CONT TO FOLLOW POC
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
--- NOTE | 2018-06-25 18:13 | NUR ---
PT IS STILL THROWING UP EVEN WITH THE HELP OF ZOFRAN. NOTIFIED . NEW ORDER RECIEVED FOR PHENERGAN IM
--- NOTE | 2018-06-25 19:50 | NUR ---
PT RESTING QUIETLY CALL LIGHT IN REACH. DENIES NEEDS OR PAIN. BED IN LOW SIDE RAILS X2. RESP EVEN AND UNLABORED. A/O X4. WCTM
--- NOTE | 2018-06-25 21:20 | NUR ---
CALLED PHARMACY ABOUT THIAMINE NOT IN [place]. SURVEY OPERATIONS DIRECTOR JOE ANSWERED AND STATED IT WAS ON COUNTER AND SHE WOULD BRING IT. LIVAN
--- NOTE | 2018-06-25 22:04 | NUR ---
NO THIAMINE IN [facility] AFTER CARD HANGER STATED SHE WOULD BRING MED.
[2018-06-26 04:00] VITALS: BP 141/87
[2018-06-26 05:14] LABS: BASOPHILS 0.2 % (0-2); EOSINOPHILS 0.7 % (0-7); HEMATOCRIT 32.3 % (42.0-54.0); HEMOGLOBIN 10.6 g/dL (13.5-17.5); IMMATURE GRANULOCYTES 0.2 % (0-5); LYMPHOCYTES 24.5 % (15-50); MCH 35.3 pg (26.0-34.0); MCHC 32.8 g/dL (31.0-37.0); MEAN PLATELET VOLUME 9.8 fL (7.4-10.4); MONOCYTES 12.1 % (2-11); NEUTROPHILS 62.3 % (40-80); PLATELET COUNT 115 10x3/uL (130-400); RDW 13.9 % (11.5-14.5)
--- NOTE | 2018-06-26 05:32 | NUR ---
PT SITTING UP IN BED WATCHING TV. CALL LIGHT IN REACH. DENIES NEEDS AT THIS TIME. PT HAS REQUESTED ABOUT 3 CANS OF LEMON TRIBE THROUGHOUT NIGHT. WCTM
[2018-06-26 05:47] LABS: MCV 107.7 fL (80.0-100.0); WBC 4.2 10x3/uL (4.8-10.8)
[2018-06-26 05:48] LABS: ALKALINE PHOSPHATASE 65 U/L (46-116); ALT (SGPT) 52 U/L (10-68); BILIRUBIN - TOTAL 2.12 mg/dL (0.2-1.3); CALCIUM 8.1 mg/dL (8.5-10.1); CARBON DIOXIDE 32.4 mmol/L (21.0-32.0); CHLORIDE - SERUM 106 mmol/L (98-107); PHOSPHOROUS 2.1 mg/dL (2.5-4.9); POTASSIUM - SERUM 3.7 mmol/L (3.5-5.1); PROTEIN - SERUM 5.9 g/dL (6.4-8.2); SODIUM 142 mmol/L (136-145); eGFR NON AFRICAN AMERICAN 82 mL/min (90-120)
[2018-06-26 05:54] LABS: CALC OSMOLALITY 282 mosm/kg (275-300); GLUCOSE 139 mg/dL (74-106); MAGNESIUM - SERUM 2.4 mg/dL (1.8-2.4); UREA NITROGEN 8 mg/dL (7-18)
--- NOTE | 2018-06-26 07:40 | NUR ---
ASSESSMENT COMPLETE. IV TO L HAND PATENT. ABRASION NOTED TO L FA. REPORTS HAVING AUDITORY AND VISUAL HALLUCINATIONS. DENIES ANY NEEDS AT THIS TIME.
[2018-06-26 08:00] VITALS: BP 145/93
--- NOTE | 2018-06-26 10:00 | NUR ---
REPORTS THINKING HE SAW 2 PEOPLE SITTING WITH HIM WATCHING TV. DISORIENTED TO TIME. WAS THINKING IT WAS NIGHTTIME AND ASKING ABOUT AMBIEN.
[2018-06-26 10:40] VITALS: Ht 182.9 cm; Wt 74.8 kg
[2018-06-26 11:52] VITALS: BP 106/70
--- NOTE | 2018-06-26 16:17 | MORECARE ---
CASE MANAGEMENT DISCHARGE SUMMARY PATIENT: ROSEMARIE DA SILVA UNIT: [id number] ADM DATE: 06/26/18 AGE: 58 : 62 SEX: M ROOM/BED: D.1205 AUTHOR: MELITA ENRIQUE PHYSICIAN: REFERRING PHYSICIAN: HILLARY DANIELS MD DATE OF SERVICE: 06/26/18 Discharge Plan Patient Name: ROSEMARIE DA SILVA Facility: [facility]:[place] : 1960 Planned Disposition: Anticipated Discharge Date: Discharge Date: Expected LOS: Initial Reviewer: [email or web address] Initial Review Date: 06/26/2018 Generated: 06/26/18 5:17 pm Comments DCP- Discharge Planning Updated by [id number]: Amira Collins on 06/26/18 3:[address] Patient Name: ROSEMARIE DA SILVA Admission Status: ER Accout number: [id number] Admission Date: 06-26-2018 : 1960 Admission Diagnosis: Attending: HILLARY DANIELS Current LOS: 1 Anticipated DC Date: Planned Disposition: Primary Insurance: MEDICAID [place] Discharge Planning Comments: CM MET WITH PATIENT ABOUT DC PLANNING/NEEDS. PATIENT STATES THAT AFTER HE HAS DETOXED AND IS READY FOR DC HE MAY GO TO [facility] IN [place] AND GO TO AN [facility] C[facility]. [facility] STARTED HAVING HALLUCINATION LAST NIGHT AND TODAY. PATIENT IS CALM AT THIS TIME, DENIES SI AND HI. [facility] IS NOT INTERESTED IN ALCOHOL TREATMENT IN [place] AND PLANS TO GO TO [place] WHEN MEDICALLY STABLE. CM WILL FOLLOW AND ASSIST NEEDED WITH DC PLANNING/NEEDS. System Specialist: Amira Collins DCPIA - Discharge Planning Initial Assessment Updated by [id number]: Amira Collins on 06/26/18 4:09 pm * Is the patient Alert and Oriented? Yes * PCP OOT * Pharmacy [facility] * Preadmission Environment Home Alone * ADLs Independent * Equipment None * Community resources currently utilized None * Additional services required to return to the preadmission environment? No * Can the patient safely return to the preadmission environment? Yes * Has this patient been hospitalized within the prior 30 days at any hospital? No Patient Name: ROSEMARIE DA SILVA Page 97839 at 1617 All edits/amendments must be made on the electronic document DICTATION DATE: 06/26/181616 WALLPAPER INSPECTOR AND SHIPPER: BECKY 06/26/181616 RPT#: [id number] DC DATE: STATUS: ADM IN [facility] [address] [place] [address] END OF REPORT
--- NOTE | 2018-06-26 16:37 | NUR ---
SCD'S APPLIED BILATERALLY AT THIS TIME.
--- NOTE | 2018-06-26 19:45 | NUR ---
PT RESTINHG IN BED ALERT AND ORIENTED. NO S/S OF DISTRESS. PT DENIES ANY PAIN OR NEEDS AT THIS TIME. BED LOW CALL LIGHT WITHIN REACH, BED LOW, SIDE RAILS UP X2. WILL CONTINUE TO MONITOR.
--- NOTE | 2018-06-26 23:12 | NUR ---
PT LEFT HAND IV INFILTRATED. IV DC'D WITH CATHETER TIP IN PLACE. NO REDDNESS OR SWELLING NOTED. 20G IV ESTABLISHED IN PT'S RIGHT HAND. IV SITE CLEAN AND PATENT. WILL CONTINUE TO MONITOR.
--- NOTE | 2018-06-27 01:07 | NUR ---
PT COMPLAINS OF NAUSEA. PRN ZOFRAN GIVEN. BED LOW CALL LIGHT WITHIN REACH. WILL CONTINUE TO MONITIOR.
[2018-06-27 05:40] LABS: BASOPHILS 0.3 % (0-2); EOSINOPHILS 1.5 % (0-7); HEMATOCRIT 31.6 % (42.0-54.0); HEMOGLOBIN 10.5 g/dL (13.5-17.5); IMMATURE GRANULOCYTES 0.3 % (0-5); LYMPHOCYTES 32.6 % (15-50); MCHC 33.2 g/dL (31.0-37.0); MCV 108.2 fL (80.0-100.0); MEAN PLATELET VOLUME 10.4 fL (7.4-10.4); MONOCYTES 8.6 % (2-11); NEUTROPHILS 56.7 % (40-80); PLATELET COUNT 103 10x3/uL (130-400); RBC 2.92 10x6/uL (4.20-6.10); RDW 13.4 % (11.5-14.5)
--- NOTE | 2018-06-27 05:46 | NUR ---
PT SITTING UP IN BED WATCHING TV. NO S/S OF DISTRESS. BED LOW CALL LIGHT WITHIN REACH. WILL CONTINUE TO MONITOR.
[2018-06-27 06:03] LABS: ALKALINE PHOSPHATASE 83 U/L (46-116); ALT (SGPT) 57 U/L (10-68); BILIRUBIN - TOTAL 1.46 mg/dL (0.2-1.3); CALC OSMOLALITY 273 mosm/kg (275-300); CALCIUM 8.1 mg/dL (8.5-10.1); CARBON DIOXIDE 31.9 mmol/L (21.0-32.0); CHLORIDE - SERUM 101 mmol/L (98-107); GLUCOSE 96 mg/dL (74-106); PHOSPHOROUS 2.6 mg/dL (2.5-4.9); POTASSIUM - SERUM 3.4 mmol/L (3.5-5.1); PROTEIN - SERUM 5.9 g/dL (6.4-8.2); SODIUM 138 mmol/L (136-145); UREA NITROGEN 6 mg/dL (7-18); eGFR NON AFRICAN AMERICAN 82 mL/min (90-120)
[2018-06-27 06:04] LABS: MAGNESIUM - SERUM 1.6 mg/dL (1.8-2.4)
--- NOTE | 2018-06-27 07:20 | NUR ---
PT RESTING IN BED, EYES OPEN. NO C/O PAIN. NO S/S OF ACUTE DISTRESS NOTED. ALERT AND ORIENTED. UP AD MELIDA. REFUSED SCDS. ON ELECTROLYTE PROTOCOL. IV TO RIGHT HAND, SL. SITE PATENT WITHOUT REDNESS OR SWELLING. PT DENIES ANYTHING FURTHER AT THIS TIME. CALL LIGHT IN REACH. WILL CONTINUE TO MONITOR.
[2018-06-27 08:09] VITALS: BP 145/99
--- NOTE | 2018-06-27 09:57 | MORECARE ---
CASE MANAGEMENT DISCHARGE SUMMARY PATIENT: ROSEMARIE DA SILVA UNIT: [id number] ADM DATE: 06/26/18 AGE: 58 : 62 SEX: M ROOM/BED: D.1205 AUTHOR: IVA,DOC PHYSICIAN: REFERRING PHYSICIAN: HILLARY DANIELS MD DATE OF SERVICE: 06/27/18 Discharge Plan Patient Name: ROESMARIE DA SILVA Facility: [facility]:[place] : 1960 Planned Disposition: Anticipated Discharge Date: Discharge Date: Expected LOS: Initial Reviewer: [email or web address] Initial Review Date: 06/26/2018 Generated: 06/27/18 10:57 am Comments DCP- Discharge Planning Updated by [id number]: Dee Blevins on 06/27/18 8:[address] PSYCHIATRIC CONSULT WITH DR MURDOCK ORDERED THIS AM. PRIMARY NURSE CALLED AND FAXED FACE SHEET WITH MD ORDER. AWAITING CONSULT. DCP- Discharge Planning Updated by [id number]: Amira Collins on 06/26/18 3:[address] Patient Name: ROSEMARIE DA SILVA Admission Status: ER Accout number: [id number] Admission Date: 06-26-2018 : 1960 Admission Diagnosis: Attending: HILLARY DANIELS Current LOS: 1 Anticipated DC Date: Planned Disposition: Primary Insurance: MEDICAID [place] Discharge Planning Comments: CM MET WITH PATIENT ABOUT DC PLANNING/NEEDS. PATIENT STATES THAT AFTER HE HAS DETOXED AND IS READY FOR DC HE MAY GO TO [facility] IN [place] AND GO TO AN AL[facility]HOL T[facility]ATM[facility] CENTER. [facility] STARTED HAVING HALLUCINATION LAST NIGHT AND TODAY. PATIENT IS CALM AT THIS TIME, DENIES SI AND HI. [facility] IS NOT INTERESTED IN ALCOHOL TREATMENT IN [place] AND PLANS TO GO TO [place] WHEN MEDICALLY STABLE. CM WILL FOLLOW AND ASSIST NEEDED WITH DC PLANNING/NEEDS. Reel Assembler: Amira Collins DCPIA - Discharge Planning Initial Assessment Updated by [id number]: Amira Collins on 06/26/18 4:09 pm * Is the patient Alert and Oriented? Yes * PCP OOT * Pharmacy [facility] * Preadmission Environment Home Alone * ADLs Independent * Equipment None * Community resources currently utilized None * Additional services required to return to the preadmission environment? No * Can the patient safely return to the preadmission environment? Yes * Has this patient been hospitalized within the prior 30 days at any hospital? No Last DP export: 06/26/18 3:17 pm Patient Name: ROSEMARIE DA SILVA Page [phone] at 0957 All edits/amendments must be made on the electronic document DICTATION DATE: 06/27/18955 CHEMICAL DEPENDENCY ATTENDANT: BECKY 06/27/18955 RPT#: [id number] DC DATE: STATUS: ADM IN [facility] [address] [place] [address] END OF REPORT
--- NOTE | 2018-06-27 15:40 | NUR ---
I have reviewed this patient and I concur with the Shift Assessment completed by the Licensed Practical Nurse today this shift.
--- NOTE | 2018-06-27 18:55 | NUR ---
PT RESTING IN BED, EYES OPEN. NO C/O PAIN. NO S/S OF ACUTE DISTRESS NOTED. CALL LIGHT IN REACH. PT DENIES ANYTHING FURTHER.
[2018-06-27 18:58] VITALS: BP 145/92
[2018-06-27 20:00] VITALS: BP 151/94
[2018-06-28] VITALS: BP 107/61
[2018-06-28 04:00] VITALS: BP 113/68
[2018-06-28 06:55] LABS: ALBUMIN 2.8 g/dL (3.4-5.0); ALKALINE PHOSPHATASE 78 U/L (46-116); ALT (SGPT) 196 U/L (10-68); BILIRUBIN - TOTAL 1.15 mg/dL (0.2-1.3); CALC OSMOLALITY 273 mosm/kg (275-300); CALCIUM 8.7 mg/dL (8.5-10.1); CARBON DIOXIDE 27.7 mmol/L (21.0-32.0); CHLORIDE - SERUM 102 mmol/L (98-107); GLUCOSE 89 mg/dL (74-106); MAGNESIUM - SERUM 1.5 mg/dL (1.8-2.4); PHOSPHOROUS 3.9 mg/dL (2.5-4.9); PROTEIN - SERUM 6.1 g/dL (6.4-8.2); SODIUM 138 mmol/L (136-145); UREA NITROGEN 11 mg/dL (7-18); eGFR NON AFRICAN AMERICAN 82 mL/min (90-120)
[2018-06-28 07:03] LABS: BASOPHILS 0.8 % (0-2); EOSINOPHILS 2.3 % (0-7); HEMATOCRIT 31.7 % (42.0-54.0); HEMOGLOBIN 10.7 g/dL (13.5-17.5); IMMATURE GRANULOCYTES 0.3 % (0-5); LYMPHOCYTES 36.7 % (15-50); MCH 35.9 pg (26.0-34.0); MCHC 33.8 g/dL (31.0-37.0); MCV 106.4 fL (80.0-100.0); MEAN PLATELET VOLUME 10.2 fL (7.4-10.4); MONOCYTES 10.6 % (2-11); NEUTROPHILS 49.3 % (40-80); PLATELET COUNT 100 10x3/uL (130-400); RBC 2.98 10x6/uL (4.20-6.10); RDW 12.8 % (11.5-14.5)
--- NOTE | 2018-06-28 08:00 | NUR ---
PT SITTING UP IN BED. ALERT AND ORIENTED. FLUSHED LEFT FA IV WITH 10CC NS. ROOM AIR. PT IS UP ADLIB. PT HAS NO FURTHER NEEDS AT THIS TIME. WILL CONTINUE TO MONITOR.
[2018-06-28 08:19] VITALS: BP 143/88
--- NOTE | 2018-06-28 15:51 | NUR ---
I have reviewed this patient and I concur with the Shift Assessment completed by the Licensed Practical Nurse today this shift.
--- NOTE | 2018-06-28 15:55 | CN ---
PATIENT NAME:ROSEMARIE DA SILVA MEDICAL RECORD: [id number] : 62 LOCATION:D. D.1205 ADMIT DATE: 06/26/18 ACCOUNT: [id number] CONSULTING PHYSICIAN: ANEESH MURDOCK MD REFERRING PHYSICIAN: HILLARY DANIELS MD DATE OF CONSULTATION: 06/27/2018 IDENTIFYING DATA: The patient is 58 years old and he is admitted to the hospital on a voluntary basis. CHIEF COMPLAINT: "I have been having hallucinations." HISTORY OF PRESENT ILLNESS: The patient is an alcoholic. He presented to the Emergency Room with a neurotoxic level of alcohol. He has been admitted secondary to a metabolic encephalopathy and delirium tremens associated with the alcohol use. He tells me he drinks a half a gallon a day of vodka and/or Everclear. He apparently had a stroke a few weeks ago, although he has no focal deficits. He is not wanting to hurt himself, although the patient apparently has been suicidal in the past when intoxicated or while being detoxified. He has been through numerous inpatient and outpatient treatment programs without success. He tells me this time is different and he is really going to quit drinking. He says he is going to go to a program in [place] called [facility]. He says that this is a program that is designed for people like himself, who are more functional and successful. 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 He denies any thoughts of harming himself. He denies thoughts of harming others. The psychotic symptoms had been auditory and visual. He has recognized that they were not real and that they were quite disturbing. He has been seeing a band out in the parking lot. He has had other perceptual changes, but none this afternoon. MENTAL STATUS EXAMINATION: The patient is awake, alert and oriented to person, place, time and situation. His mood is flat. His affect is constricted. Thought processes are circumstantial. Memory, concentration, and abstraction abilities are moderately impaired and he denies any active intent to harm himself or others as well as overt psychotic symptoms. ASSESSMENT: 1. Alcohol dependence. 2. Metabolic encephalopathy. PLAN: The patient should be treated in a standard manner for alcohol detoxification as he is being treated. I suspect his symptoms will improve as his underlying metabolic abnormalities resolve. Concerning the hallucinations, I am going to recommend the use of Geodon at a dose of 20 mg twice daily. This may need to be titrated downward if he is having excessive sedation. I would not recommend this as a long-term medication, perhaps 2 or 3 days would be all that should be required. Obviously, the patient's primary problem is the alcohol and he acknowledges that. He also says that he really just drinks because he gets bored, he is not productive and he thinks he has an underlying depressive or anxiety disorder along with insomnia. This is a classic sort of presentation and I have assured the patient that whatever is going on and needs to be addressed cannot be addressed until the alcohol use stops. He is at a critical juncture, he is not going to have a very good outcome if he continues CONSULT REPORT [id number] ROSEMARIE DA SILVA to drink. The perceptual disturbances can become more troublesome and even permanent if he continues to drink in this excessive manner. If there is any assistance he may need him being placed in this treatment facility in [place], I am sure he would whatever help discharge planning or social work job titles could arrange for him. Again, his long-term prognosis is entirely contingent upon abstinence from alcohol. He does not want any treatment in this area, feels it has not been helpful and prefers to go to the program in [place]. TRANSINT:[id number] Voice Confirmation ID: [id number] DOCUMENT ID: [id number] ANEESH MURDOCK MD at 1555 CC: [id number] DICTATION DATE: 06/27/18 1527 ADVERTISING CAMPAIGN MANAGER: 06/27/18 1553 ADM IN [facility] [address] [place] [address]
--- NOTE | 2018-06-28 17:28 | NUR ---
PT CURRENTLY LYING SEMI FOWLERS. CALL LIGHT W/I REACH. PT IS AAO AND DENIES ANY NEEDS AT THIS TIME. NO S/S OF DISTRESS NOTED. RR EVEN AND UNLABORED ON RA. WILL PASS REPORT AND CONTINUE WITH POC.
[2018-06-28 19:00] VITALS: BP 135/82
--- NOTE | 2018-06-28 19:00 | NUR ---
GREETED PATIENT AND INTRODUCED MYSELF HIS NURSE. PATIENT IS LAYING IN SUPINE POSITION. HOB AT 30 DEGREES. LEFT FOREARM IV SALINE LOCKED AT THIS TIME. PATIENT DENIES ANY PAIN. DENIES ANY NEEDS AT THIS TIME. VITAL SIGNS OBTAINED. CALL LIGHT IN REACH.
--- NOTE | 2018-06-28 23:09 | NUR ---
PATIENT AWAKE LAYING IN BED IN SUPINE POSITION WATCHING TV. RESPIRATIONS EVEN. NO S/S OF DISTRESS. DENIES ANY NEEDS AT THIS TIME. CALL LIGHT IN REACH.
[2018-06-29 00:05] VITALS: BP 133/95
--- NOTE | 2018-06-29 03:00 | NUR ---
PATIENT RESTING QUIETLY LAYING IN SUPINE POSITION. HOB AT 30 DEGREES. RESPIRATIONS EVEN. NO S/S OF DISTRESS. CALL LIGHT IN REACH.
[2018-06-29 04:10] VITALS: BP 110/62
[2018-06-29 07:05] LABS: BASOPHILS 0.5 % (0-2); EOSINOPHILS 2.1 % (0-7); HEMATOCRIT 31.3 % (42.0-54.0); HEMOGLOBIN 10.6 g/dL (13.5-17.5); IMMATURE GRANULOCYTES 0.3 % (0-5); LYMPHOCYTES 37.8 % (15-50); MCH 35.6 pg (26.0-34.0); MCHC 33.9 g/dL (31.0-37.0); MEAN PLATELET VOLUME 9.8 fL (7.4-10.4); MONOCYTES 14.9 % (2-11); NEUTROPHILS 44.4 % (40-80); PLATELET COUNT 118 10x3/uL (130-400); RBC 2.98 10x6/uL (4.20-6.10); WBC 3.9 10x3/uL (4.8-10.8)
[2018-06-29 07:26] LABS: ALBUMIN 2.9 g/dL (3.4-5.0); ALKALINE PHOSPHATASE 92 U/L (46-116); ALT (SGPT) 306 U/L (10-68); BILIRUBIN - TOTAL 0.84 mg/dL (0.2-1.3); CALC OSMOLALITY 276 mosm/kg (275-300); CALCIUM 8.7 mg/dL (8.5-10.1); CARBON DIOXIDE 30.8 mmol/L (21.0-32.0); CHLORIDE - SERUM 102 mmol/L (98-107); GLUCOSE 89 mg/dL (74-106); MAGNESIUM - SERUM 1.4 mg/dL (1.8-2.4); PHOSPHOROUS 4.1 mg/dL (2.5-4.9); POTASSIUM - SERUM 3.7 mmol/L (3.5-5.1); PROTEIN - SERUM 6.3 g/dL (6.4-8.2); SODIUM 140 mmol/L (136-145); UREA NITROGEN 11 mg/dL (7-18); eGFR NON AFRICAN AMERICAN 82 mL/min (90-120)
--- NOTE | 2018-06-29 08:13 | NUR ---
PT AWAKE AND ORIENTED. STATES BREAKFAST PEOPLE GOT HIS TRAY WRONG BUT THEYRE FIXING IT. NO OTHER COMPLAINTS/CONCNERS AT THIS TIME. CL IN REACH, SRX2
[2018-06-29 09:26] VITALS: BP 148/94
--- NOTE | 2018-06-29 12:46 | NUR ---
I have reviewed this patient and I concur with the Shift Assessment completed by the Licensed Practical Nurse today this shift.
--- NOTE | 2018-06-29 14:09 | NUR ---
PT STATES HIS RIDE MAY NOT BE HERE UNTIL 1999 TONIGHT. HAVE INFORMED THE PT HE NEEDS TO BE OUT BEOFORE MIDNIGHT.
[2018-06-29 15:45] VITALS: BP 135/90
--- NOTE | 2018-06-29 18:29 | NUR ---
PT WALKED OUT TO SISTERS CAR, AMBULATED BY CHOICE, OFFERED WHEELCHAIR.
--- NOTE | 2018-06-30 08:53 | MORECARE ---
CASE MANAGEMENT DISCHARGE SUMMARY PATIENT: ROSEMARIE DA SILVA UNIT: [id number] ADM DATE: 06/26/18 AGE: 58 : 62 SEX: M ROOM/BED: D.1205 AUTHOR: IVA,DOC PHYSICIAN: REFERRING PHYSICIAN: HILLARY DANIELS MD DATE OF SERVICE: 06/30/18 Discharge Plan Patient Name: ROSEMARIE DA SILVA Facility: [facility]:[place] : 1960 Planned Disposition: Anticipated Discharge Date: Discharge Date: 06/29/2018 Expected LOS: Initial Reviewer: [email or web address] Initial Review Date: 06/26/2018 Generated: 06/30/18 9:53 am DCP- Discharge Planning Updated by [email or web address]: Dee Blevins on 06/27/18 8:[address] PSYCHIATRIC CONSULT WITH DR MURDOCK ORDERED THIS AM. PRIMARY NURSE CALLED AND FAXED FACE SHEET WITH MD ORDER. AWAITING CONSULT. DCP- Discharge Planning Updated by [email or web address]: Amira Collins on 06/26/18 3:[address] Patient Name: ROSEMARIE DA SILVA Admission Status: ER Accout number: [id number] Admission Date: 06-26-2018 : 1960 Admission Diagnosis: Attending: HILLARY DANIELS Current LOS: 1 Anticipated DC Date: Planned Disposition: Primary Insurance: MEDICAID [place] Discharge Planning Comments: CM MET WITH PATIENT ABOUT DC PLANNING/NEEDS. PATIENT STATES THAT AFTER HE HAS DETOXED AND IS READY FOR DC HE MAY GO TO S[facility] HOU[facility] IN [place] AND GO TO AN ALCOHOL TREATMANT CENTER. [facility] STARTED HAVING HALLUCINATION LAST NIGHT AND TODAY. PATIENT IS CALM AT THIS TIME, DENIES SI AND HI. [facility] IS NOT INTERESTED IN ALCOHOL TREATMENT IN [place] AND PLANS TO GO TO [place] WHEN MEDICALLY STABLE. CM WILL FOLLOW AND ASSIST NEEDED WITH DC PLANNING/NEEDS. Kosher Dietary Service Manager: Amira Collins DCPIA - Discharge Planning Initial Assessment Updated by [id number]: Amira Collins on 06/26/18 4:09 pm * Is the patient Alert and Oriented? Yes * PCP OOT * Pharmacy [facility] * Preadmission Environment Home Alone * ADLs Independent * Equipment None * Community resources currently utilized None * Additional services required to return to the preadmission environment? No * Can the patient safely return to the preadmission environment? Yes * Has this patient been hospitalized within the prior 30 days at any hospital? No Last DP export: 06/27/18 8:57 am Patient Name: ROSEMARIE DA SILVA Page [id number] at 0853 All edits/amendments must be made on the electronic document DICTATION DATE: 06/30/18851 CHRONOMETER ASSEMBLER AND ADJUSTER: BECKY 06/30/1852 RPT#: [id number] DC DATE:06/29/18 STATUS: DIS IN [facility] [address] [place] [address] END OF REPORT
== END 2018-06-29 18:30 | disposition home or self-care (01) | DRG 896 ==
LOC: D.ER 14:48 → D.M3 06-25 07:40 → OBSVTIME 06-26 15:50 → D.M3 06-26 15:51
PROVIDERS: Emergency Medicine; Family Medicine; ADMIT Internal Medicine Nephrology; ATTEND Internal Medicine Nephrology
DX: F10.121 Alcohol abuse with intoxication delirium (principal); G93.41 Metabolic encephalopathy; Y90.8 Blood alcohol level of 240 mg/100 ml or more; D53.9 Nutritional anemia, unspecified; I10 Essential (primary) hypertension; E83.42 Hypomagnesemia; E87.6 Hypokalemia; Z86.73 Personal history of transient ischemic attack (TIA), and cerebral infarction without residual deficits; F17.213 Nicotine dependence, cigarettes, with withdrawal; F15.10 Other stimulant abuse, uncomplicated; K70.10 Alcoholic hepatitis without ascites

== ENCOUNTER 2018-07-17 23:41 | Inpatient (IN) | payer MEDICAID ==
--- NOTE | 2018-07-17 23:52 | NUR ---
TRAUMA BAND [id number]
[2018-07-18] VITALS (21 sets, daily range): BP systolic 100–149; BP diastolic 63–100; BMI 23.2; BMI 23.1
[2018-07-18 00:06] LABS: BASOPHILS 0.7 % (0-2); EOSINOPHILS 0.6 % (0-7); HEMATOCRIT 35.4 % (42.0-54.0); HEMOGLOBIN 12.9 g/dL (13.5-17.5); IMMATURE GRANULOCYTES 0.2 % (0-5); LYMPHOCYTES 50.3 % (15-50); MCH 36.1 pg (26.0-34.0); MCHC 36.4 g/dL (31.0-37.0); MCV 99.2 fL (80.0-100.0); MEAN PLATELET VOLUME 9.4 fL (7.4-10.4); MONOCYTES 15.6 % (2-11); NEUTROPHILS 32.6 % (40-80); PLATELET COUNT 254 10x3/uL (130-400); RBC 3.57 10x6/uL (4.20-6.10); RDW 12.4 % (11.5-14.5); WBC 5.5 10x3/uL (4.8-10.8)
[2018-07-18 00:10] LABS: APPEARANCE CLEAR (CLEAR); COLOR DK YELLOW (YELLOW); GLUCOSE NEGATIVE (NEGATIVE); NITRITE NEGATIVE (NEGATIVE); PROTEIN NEGATIVE (NEGATIVE)
[2018-07-18 00:11] LABS: BILIRUBIN NEGATIVE (NEGATIVE); KETONE SMALL mg/dL (NEGATIVE)
[2018-07-18 00:14] LABS: UDS - AMPHET NEGATIVE QUAL (NEGATIVE); UDS - BARB NEGATIVE QUAL (NEGATIVE); UDS - BENZO POSITIVE QUAL (NEGATIVE); UDS - COCAINE NEGATIVE QUAL (NEGATIVE); UDS - OPIATE NEGATIVE QUAL (NEGATIVE); UDS - PCP NEGATIVE QUAL (NEGATIVE); UDS - THC NEGATIVE QUAL (NEGATIVE)
--- NOTE | 2018-07-18 00:20 | NUR ---
PSYCH NURSE RECOMMENDATION IS TO BE ONE ON ONE, SITTER WITH PT. DENIES ANY NEEDS AT PRESENT. RESTING IN ROOM AWAKE AND ALERT
[2018-07-18 00:22] LABS: ALBUMIN 3.9 g/dL (3.4-5.0); ALKALINE PHOSPHATASE 88 U/L (46-116); ALT (SGPT) 53 U/L (10-68); BILIRUBIN - TOTAL 1.44 mg/dL (0.2-1.3); CALC OSMOLALITY 252 mosm/kg (275-300); CALCIUM 9.1 mg/dL (8.5-10.1); CARBON DIOXIDE 25.8 mmol/L (21.0-32.0); CHLORIDE - SERUM 86 mmol/L (98-107); GLUCOSE 106 mg/dL (74-106); MAGNESIUM - SERUM 1.4 mg/dL (1.8-2.4); PROTEIN - SERUM 8.1 g/dL (6.4-8.2); SODIUM 126 mmol/L (136-145); UREA NITROGEN 13 mg/dL (7-18); eGFR NON AFRICAN AMERICAN 82 mL/min (90-120)
--- NOTE | 2018-07-18 00:22 | NUR ---
DR. MARS NOTIFIED AND 1:1 SITTER OBSERVATION ORDERED. SITTER AT BEDSIDE, NOTIFIED CHARGE NURSE AND ATTENDING IN REGARDS TO ASSMENT FINDINGS, RESOURCES GIVEN TO PT AND SAFETY PLAN INITIATED.
[2018-07-18 00:30] LABS: POTASSIUM - SERUM 2.9 mmol/L (3.5-5.1)
--- NOTE | 2018-07-18 00:31 | NUR ---
CRITICAL LAB VALUE 2.9. EDP AND NURSE INFORMED.
--- NOTE | 2018-07-18 03:10 | NUR ---
RECEIVED PATIENT TO ROOM 2309 VIA WC, ACCOMPANIED BY HOSP STAFF FROM ED. ASSISSTED TO ICU BED. MONITORS ATTATCHED TO PATIENT WITH ALARMS SET. VSS. ADMIT ASSESSMENT COMPLETED AT THIS TIME PER FLOW SHEET WITH NO ACUTE DISTRESS OBSERVED. SUICIDE PRECAUTIONS AND 1:1 SUPERVISION OBSERVED. STAFF AT BEDSIDE. VERBALLY AGREES TO CONTRACT FOR SAFETY AT THIS TIME. ALERT AND ORIENTED X 4. SPEECH CLEAR AND APPROPRIATE. COOPERATIVE WITH STAFF.
[2018-07-18] MEDS ORDERED: XANAX0.5 MG PO (03:40)
--- NOTE | 2018-07-18 05:00 | NUR ---
RESTING WITH EYES CLOSED, EASILY ROUSED AND ALERT. VSS. NO ACUTE DISTRESS OBSERVED. STAFF AT BEDSIDE
--- NOTE | 2018-07-18 05:50 | NUR ---
SPOKE WITH ARVIND PLASCENCIA APN, NEW ORDERS RECEIVED.
--- NOTE | 2018-07-18 07:15 | NUR ---
REPORT RECIEVED, SHIFT ASSESSMENT COMPLETE, PT IS ALERT AND ORIENTED, ON RA WITH 97% O2 SAT, NO SUICIDAL THOUGHTS AT THIS TIME, DRSG TO RIGHT WRIST IS CDI, ALL PPP, VSS, CALL LIGHT IN REACH
--- NOTE | 2018-07-18 09:00 | NUR ---
PT RESTING AT THIS TIME, VSS, WILL CON'T TO MONITOR
[2018-07-18 10:28] LABS: MAGNESIUM - SERUM 1.9 mg/dL (1.8-2.4); PHOSPHOROUS 3.3 mg/dL (2.5-4.9)
--- NOTE | 2018-07-18 11:15 | NUR ---
REASSESSMENT COMPLETE, NO CHANGES NOTED, VSS, CALL LIGHT IN REACH
[2018-07-18 12:02] LABS: BASOPHILS 0.4 % (0-2); EOSINOPHILS 0.2 % (0-7); HEMATOCRIT 32.4 % (42.0-54.0); HEMOGLOBIN 11.5 g/dL (13.5-17.5); IMMATURE GRANULOCYTES 0.2 % (0-5); LYMPHOCYTES 20.3 % (15-50); MCH 36.1 pg (26.0-34.0); MCHC 35.5 g/dL (31.0-37.0); MEAN PLATELET VOLUME 9.7 fL (7.4-10.4); MONOCYTES 17.6 % (2-11); NEUTROPHILS 61.3 % (40-80); PLATELET COUNT 221 10x3/uL (130-400); RBC 3.19 10x6/uL (4.20-6.10); RDW 12.6 % (11.5-14.5); WBC 5.5 10x3/uL (4.8-10.8)
[2018-07-18 12:31] LABS: MCV 101.6 fL (80.0-100.0)
--- NOTE | 2018-07-18 15:15 | NUR ---
REASSESSMENT COMPLETE, NO CHANGES NOTED, VSS, CALL LIGHT IN REACH
[2018-07-18 16:37] LABS: ALBUMIN 3.2 g/dL (3.4-5.0); ALKALINE PHOSPHATASE 73 U/L (46-116); ALT (SGPT) 40 U/L (10-68); BILIRUBIN - TOTAL 1.71 mg/dL (0.2-1.3); CALC OSMOLALITY 257 mosm/kg (275-300); CARBON DIOXIDE 25.4 mmol/L (21.0-32.0); CHLORIDE - SERUM 94 mmol/L (98-107); GLUCOSE 100 mg/dL (74-106); PROTEIN - SERUM 6.8 g/dL (6.4-8.2); SODIUM 129 mmol/L (136-145); UREA NITROGEN 10 mg/dL (7-18); eGFR NON AFRICAN AMERICAN 82 mL/min (90-120)
[2018-07-18 16:39] LABS: POTASSIUM - SERUM 4.6 mmol/L (3.5-5.1)
--- NOTE | 2018-07-18 17:20 | NUR ---
PT METAL PLATER LIGHT REQUEST TO USE PHONE. DENIED. REORIENTED NO PHONE CALLED PER PROTOCOL FOR PT SAFETY. STATED UNDERSTANDING.
--- NOTE | 2018-07-18 19:00 | NUR ---
REPORT RECEIVED. RECEIVED PATIENT IN BED, AWAKE AND ALERT. ORIENTED X 4. SPEECH CLEAR AND APPROPRIATE. COMMUNICATIVE. DENIES IDEAS OF SELF HARM AT THIS TIME. SUICIDE PRECAUTIONS AND 1:1 SUPERVISION OBSERVED. STAFF AT BEDSIDE. SHIFT ASSESSMENT COMPLETED PER FLOW SHEET WITH NO ACUTE DISTRESS OBSERVED. VSS.
--- NOTE | 2018-07-18 21:00 | NUR ---
PO MEDS TAKEN WITHOUT DIFF. DENIES ANY WORSENING ETOH WITHDRAWAL SYMPTOMS/AUDITORY OR VISUAL HALLUCINATIONS. VSS. NO ACUTE DISTRESS OBSERVED.
--- NOTE | 2018-07-18 23:00 | NUR ---
REASSESSMENT COMPLETED PER FLOW SHEET WITH NO CHANGES OR ACUTE DISTRESS OBSERVED. VSS. STAFF AT BEDSIDE
[2018-07-19] VITALS (16 sets, daily range): BP systolic 99–139; BP diastolic 66–98
--- NOTE | 2018-07-19 01:00 | NUR ---
RESTING WITH EYES CLOSED. EASILY ROUSED AND ALERT. VSS. NO ACUTE DISTRESS OBSERVED.
[2018-07-19 03:16] LABS: BASOPHILS 0.2 % (0-2); EOSINOPHILS 0.9 % (0-7); HEMATOCRIT 29.3 % (42.0-54.0); HEMOGLOBIN 10.1 g/dL (13.5-17.5); IMMATURE GRANULOCYTES 0.2 % (0-5); LYMPHOCYTES 31.4 % (15-50); MCH 35.7 pg (26.0-34.0); MCHC 34.5 g/dL (31.0-37.0); MCV 103.5 fL (80.0-100.0); MEAN PLATELET VOLUME 9.3 fL (7.4-10.4); MONOCYTES 19.8 % (2-11); NEUTROPHILS 47.5 % (40-80); RBC 2.83 10x6/uL (4.20-6.10); RDW 12.6 % (11.5-14.5); WBC 4.5 10x3/uL (4.8-10.8)
[2018-07-19 03:18] LABS: PLATELET COUNT 165 10x3/uL (130-400)
[2018-07-19 03:27] LABS: CALC OSMOLALITY 269 mosm/kg (275-300); CALCIUM 8.5 mg/dL (8.5-10.1); CARBON DIOXIDE 30.1 mmol/L (21.0-32.0); CHLORIDE - SERUM 102 mmol/L (98-107); CREATININE - SERUM 0.9 mg/dL (0.6-1.3); GLUCOSE 85 mg/dL (74-106); SODIUM 136 mmol/L (136-145); UREA NITROGEN 9 mg/dL (7-18); eGFR NON AFRICAN AMERICAN > 90 mL/min (90-120)
[2018-07-19 03:29] LABS: POTASSIUM - SERUM 3.8 mmol/L (3.5-5.1)
--- NOTE | 2018-07-19 03:32 | NUR ---
PATIENT ADMITS TO SI ATTEMPT,BUT NO FURTHER PLANS AT THIS TIME. SITTER 1:1 AT BEDSIDE. [place] SSRI-FREQ SCREENER RESULTS REPORT TO DR. MARS WHO IS COVERING FOR DR. MURDOCK.
[2018-07-19 03:48] LABS: PHOSPHOROUS 2.5 mg/dL (2.5-4.9)
--- NOTE | 2018-07-19 05:00 | NUR ---
RESTING WITH EYES CLOSED, EASILY ROUSED AND ALERT. VSS. NO ACUTE DISTRESS OBSERVED. STAFF AT BEDSIDE
--- NOTE | 2018-07-19 07:00 | NUR ---
REPORT RECIEVED, SHIFT ASSESSMENT COMPLETE, PT IS ALERT AND ORIENTED, ON RA WITH 96% O2 SAT. ALL PPP, VSS, CALL LIGHT IN REACH
--- NOTE | 2018-07-19 09:00 | NUR ---
SITTER AT BEDSIDE, AM MEDS GIVEN
--- NOTE | 2018-07-19 11:15 | NUR ---
REASSESSMENT COMPLETE, NO CHANGES NOTED,
--- NOTE | 2018-07-19 11:16 | NUR ---
RESTING QUIETLY IN BED, ALERT, CALM, PLEASANT MOOD. DENIES SUICIDAL IDEATION OR PLAN. DR MARS WHO IS COVERING FOR DR MURDOCK HAS BEEN ADVISED OF THE ASSESSMENT. ONE ON ONE SITTING WITH PATIENT REQUIRED. STATES THAT HE EXPECTS TO DISCHARGE TO ANOTHER FACILITY POSSIBLY LATER TODAY.
--- NOTE | 2018-07-19 12:54 | MORECARE ---
CASE MANAGEMENT DISCHARGE SUMMARY PATIENT: ROSEMARIE DA SILVA UNIT: [id number] ADM DATE: 07/18/18 AGE: 58 : 62 SEX: M ROOM/BED: D.2304 AUTHOR: MELITA ENRIQUE PHYSICIAN: REFERRING PHYSICIAN: FELIPE DOTSON MD DATE OF SERVICE: 07/19/18 Discharge Plan Patient Name: ROSEMARIE DA SILVA [facility] : 1960 Planned Disposition: Psych facility Anticipated Discharge Date: Discharge Date: Expected LOS: Initial Reviewer: [email or web address] Initial Review Date: 07/18/2018 Generated: 07/19/18 1:54 pm External Providers External Provider: [facility] Next Contact Date: Service Request Date: Service Type: Resolution: Reviewer: Comments: Patient Name: ROSEMARIE DA SILVA Page [phone] at 1254 All edits/amendments must be made on the electronic document DICTATION DATE: 07/19/18 1254 ENVIRONMENT COORDINATOR: BECKY 07/19/18 1254 RPT#: [id number] DC DATE: STATUS: ADM IN [facility] [address] [place] [address] END OF REPORT
--- NOTE | 2018-07-19 13:00 | NUR ---
PT RESTING AT THIS TIME, NO NEEDS NOTED, VSS, CALL LIGHT IN REACH
--- NOTE | 2018-07-19 13:03 | MORECARE ---
CASE MANAGEMENT DISCHARGE SUMMARY PATIENT: ROSEMARIE DA SILVA UNIT: [id number] ADM DATE: 07/18/18 AGE: 58 : 62 SEX: M ROOM/BED: D.2304 AUTHOR: MELITA ENRIQUE PHYSICIAN: REFERRING PHYSICIAN: FELIPE DOTSON MD DATE OF SERVICE: 07/19/18 Discharge Plan Patient Name: ROSEMARIE DA SILVA Facility: [facility]:[place] : 1960 Planned Disposition: Psych facility Anticipated Discharge Date: Discharge Date: Expected LOS: Initial Reviewer: [email or web address] Initial Review Date: 07/18/2018 Generated: 07/19/18 2:03 pm Comments DCP- Discharge Planning Updated by [email or web address]: Paola Alexander on 07/19/18 12:[address] CM received notice that patient needs placement for inpatient psychiatric facility. CM spoke with patient he is agreeing to placement. He is requesting a rastafari based facility. CM explained that we will start with those facilities and them send out to all other facilities. Patient agrees to this. Patient is interested in snf inpatient alcohol rehab after psychiatric treatment. CM explained that he will need to speak to facility that he is being admitted too get that arranged when he is being discharged from that facility. CM sent records to transfer center for placement. CM will continue to follow and assist as needed with discharge planning / needs. Last DP export: 07/19/18 11:54 a Patient Name: ROSEMARIE DA SILVA Page [phone] at 1303 All edits/amendments must be made on the electronic document DICTATION DATE: 07/19/18 1303 SCHOOL TEACHER: BECKY 07/19/18 1303 RPT#: [id number] DC DATE: STATUS: ADM IN [facility] [address] [place] [address] END OF REPORT
--- NOTE | 2018-07-19 15:02 | NUR ---
PT AWAKE AT THIS TIME, DENIES ANY WANTS OR NEEDS, WILL CON'T TO MONITOR
--- NOTE | 2018-07-19 17:15 | NUR ---
NO NEEDS NOTED AT THIS TIME, WILL CON'T TO MONITOR
--- NOTE | 2018-07-19 19:30 | NUR ---
RECEIVED CARE OF PT, ASSESSMENT PER FLOWSHEET. PT ALERT AND ORIENTED X 4, REFUSING EKG LEADS AT THIS TIME, DENIES PAIN OR ANY NEEDS, RT WRIST DRESSING CDI, HR SR ON CM. SITTER IN ROOM.
--- NOTE | 2018-07-20 01:14 | NUR ---
PT DOES NOT WISH TO HAVE AN IV AT THIS TIME TO RECEIVE HIS BANANA BAG, NOTED.
--- NOTE | 2018-07-20 03:06 | NUR ---
[facility] (VIA TRANSFER CENTER) INTAKE QUESTIONS ANSWERED, STATE WILL NOTIFY REGARDING ACCEPTANCE OR DENIAL SHORTLY.
[2018-07-20 03:36] LABS: BASOPHILS 0.5 % (0-2); EOSINOPHILS 1.2 % (0-7); HEMATOCRIT 30.4 % (42.0-54.0); HEMOGLOBIN 10.3 g/dL (13.5-17.5); IMMATURE GRANULOCYTES 0.2 % (0-5); LYMPHOCYTES 26.5 % (15-50); MCHC 33.9 g/dL (31.0-37.0); MEAN PLATELET VOLUME 9.8 fL (7.4-10.4); MONOCYTES 15.5 % (2-11); NEUTROPHILS 56.1 % (40-80); PLATELET COUNT 163 10x3/uL (130-400); RBC 2.86 10x6/uL (4.20-6.10); RDW 12.6 % (11.5-14.5)
[2018-07-20 03:42] LABS: MCV 106.3 fL (80.0-100.0); WBC 5.7 10x3/uL (4.8-10.8)
[2018-07-20 04:01] LABS: ALBUMIN 2.7 g/dL (3.4-5.0); ALKALINE PHOSPHATASE 87 U/L (46-116); ALT (SGPT) 31 U/L (10-68); BILIRUBIN - TOTAL 0.43 mg/dL (0.2-1.3); CALC OSMOLALITY 275 mosm/kg (275-300); CALCIUM 8.5 mg/dL (8.5-10.1); CARBON DIOXIDE 28.8 mmol/L (21.0-32.0); CHLORIDE - SERUM 102 mmol/L (98-107); POTASSIUM - SERUM 3.9 mmol/L (3.5-5.1); SODIUM 137 mmol/L (136-145); UREA NITROGEN 9 mg/dL (7-18); eGFR NON AFRICAN AMERICAN 82 mL/min (90-120)
[2018-07-20 04:04] LABS: GLUCOSE 145 mg/dL (74-106)
--- NOTE | 2018-07-20 05:07 | NUR ---
DRESSING CHANGED TO RT WRIST PER PT REQUEST, TOLERATED WITHOUT DIFFICULTY.
[2018-07-20 05:45] VITALS: BP 140/88
--- NOTE | 2018-07-20 06:28 | NUR ---
AM LABS REVIEWED, NOTHING TO TREAT PER ELECTROLYTE PROTOCOL, SPRITE PROVIDED PER REQUEST.
--- NOTE | 2018-07-20 07:23 | NUR ---
[facility] CALLED TO GET PT TRANSPORTED TO [facility] IN [place]. ACCEPTED BY DR GUZMAN, REPORT CALLED TO SHAKILA AT [phone].
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
[2018-07-20 08:47] VITALS: BP 128/93
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
--- NOTE | 2018-07-20 09:21 | NUR ---
UP IN BED AWAKE AT THIS TIME. NO ACUTE DISTRESS NOTED. CALL LIGHT IN REACH. PT CLOSE TO NURSES STATION. WILL CONTINUE PLAN OF CARE.
--- NOTE | 2018-07-20 10:22 | NUR ---
PT COMPLAINT OF SWELLING AND LIMITED RANGE OF MOTION TO RT ANKLE, NOTED PT HAD MRI AND XRAYS TO RT ANKLE IN MARCH OF THIS YEAR. DR RIVAS UPDATED REGARDING COMPLAINT, NO NEW ORDERS RECIEVED. PT NOTED ABLE TO AMBULATE IN ROOM WITHOUT DIFFICULTY. VSS. WAITING FOR AMBULANCE TO ARRIVE FOR TRANSFER. WILL CONTINUE PLAN OF CARE.
--- NOTE | 2018-07-20 10:57 | NUR ---
PT DISCHARGED AT THIS TIME TO TRANSFER TO INPATIENT PSYCH PLACEMENT. WHEN PT DISCHARGED WITH AMBULANCE HE REVIEWED HIS PERSONAL ITEMS AND STATED ALL WERE THERE EXCEPT HIS CELLPHONE. NOTED ON INVENTORY UPON ADMISSION DID NOT HAVE A CELLPHONE LISTED AN ITEM WHICH WAS INVENTORIED. ALSO CALLED ER ADMISSIONS TO SEE IF HE HAD CELLPHONE LOCKEDUP IN [facility], THEY CALLED BACK AND STATED IT WAS NOT THERE. NO ACUTE DISTRESS NOTED. AMBULANCE LEFT WITH PT PERSONAL ITEMS AND DISCHARGE PAPERWORK. NO FURTHER ACTIONS.
--- NOTE | 2018-07-20 13:25 | NUR ---
PT CELL PHONE FOUND IN UNIT AT THIS TIME, IPHONE WITH [employer]. CONFIRMED PHONE IT COORELATED WITH PHONE NUMBER LISTED ON FACESHEET HIS NUMBER. PLACED TO [facility]. CALLED [facility] TO NOTIFY PT THAT PHONE HAS BEEN FOUND, SPOKE WITH ROCKY ARNOLD. NO FURTHER ACTIONS.
--- NOTE | 2018-07-22 14:53 | MORECARE ---
CASE MANAGEMENT DISCHARGE SUMMARY PATIENT: ROSEMARIE DA SILVA UNIT: [id number] ADM DATE: 07/18/18 AGE: 58 : 62 SEX: M ROOM/BED: D.2306 AUTHOR: MELITA ENRIQUE PHYSICIAN: REFERRING PHYSICIAN: FELIPE DOTSON MD DATE OF SERVICE: 07/22/18 Discharge Plan Patient Name: ROSEMARIE DA SILVA Facility: [facility]:[place] : 1960 Planned Disposition: Psych facility Anticipated Discharge Date: Discharge Date: 07/20/2018 Expected LOS: Initial Reviewer: [email or web address] Initial Review Date: 07/18/2018 Generated: 07/22/18 3:53 pm Comments DCP- Discharge Planning Updated by [email or web address]: Paola Alexander on 07/19/18 12:[address] CM received notice that patient needs placement for inpatient psychiatric facility. CM spoke with patient he is agreeing to placement. He is requesting a [facility] based facility. CM explained that we will start with those facilities and them send out to all other facilities. Patient agrees to this. 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 CM explained that he will need to speak to facility that he is being admitted too get that arranged when he is being discharged from that facility. CM sent records to transfer center for placement. CM will continue to follow and assist as needed with discharge planning / needs. Last DP export: 07/19/18 12:03 p Patient Name: ROSEMARIE DA SILVA Page [phone] at 1453 All edits/amendments must be made on the electronic document DICTATION DATE: 07/22/18 1452 CARPET WEAVER: BECKY 07/22/18 1452 RPT#: [id number] DC DATE:07/20/18 STATUS: [facility] [address] [place] [address] END OF REPORT
== END 2018-07-20 10:58 | disposition other institution (70) | DRG 641 ==
LOC: D.ER 23:41 → D.ICU 07-18 00:57
PROVIDERS: Emergency Medicine; Family Medicine; ADMIT Emergency Medicine; ATTEND Emergency Medicine
DX: E87.6 Hypokalemia (principal); R45.851 Suicidal ideations; E87.1 Hypo-osmolality and hyponatremia; S61.511A Laceration without foreign body of right wrist, initial encounter; X78.0XXA Intentional self-harm by sharp glass, initial encounter; E86.0 Dehydration; E83.42 Hypomagnesemia; D53.9 Nutritional anemia, unspecified; F41.8 Other specified anxiety disorders; R06.6 Hiccough; Z72.89 Other problems related to lifestyle; F10.129 Alcohol abuse with intoxication, unspecified

== ENCOUNTER 2019-02-08 20:26 | Emergency (ER) | payer MEDICAID ==
[~2019-02-08] VITALS: Ht 182.9 cm; Wt 84.1 kg
[~2019-02-08 20:26] MED LIST changes: +XANAX0.5 MG PO
[2019-02-08 20:30] VITALS: Ht 182.9 cm; Wt 84.1 kg
[2019-02-08] MEDS ORDERED: AMBIEN10 MG PO (20:31)
[2019-02-08] MEDS ORDERED: SEROQUEL200 MG PO (20:31)
[2019-02-08 21:03] LABS: BASOPHILS 0 % (0-2); EOSINOPHILS 0 % (0-7); HEMATOCRIT 38.7 % (42.0-54.0); HEMOGLOBIN 13.3 g/dL (13.5-17.5); IMMATURE GRANULOCYTES 0.3 % (0-5); LYMPHOCYTES 13.5 % (15-50); MCH 36.1 pg (26.0-34.0); MCHC 34.4 g/dL (31.0-37.0); MCV 105.2 fL (80.0-100.0); MEAN PLATELET VOLUME 10.1 fL (7.4-10.4); MONOCYTES 16.8 % (2-11); NEUTROPHILS 69.4 % (40-80); PLATELET COUNT 141 10x3/uL (130-400); RBC 3.68 10x6/uL (4.20-6.10); RDW 14.8 % (11.5-14.5); WBC 5.8 10x3/uL (4.8-10.8)
[2019-02-08 21:08] LABS: ALBUMIN 3.4 g/dL (3.4-5.0); BILIRUBIN - TOTAL 2.02 mg/dL (0.2-1.3); CALCIUM 8.3 mg/dL (8.5-10.1); CARBON DIOXIDE 23.2 mmol/L (21.0-32.0); CREATININE - SERUM 1.7 mg/dL (0.6-1.3); MAGNESIUM - SERUM 1.2 mg/dL (1.8-2.4); PROTEIN - SERUM 7.5 g/dL (6.4-8.2)
[2019-02-08 21:09] LABS: ANION GAP 27.7 mmol/L (8-16); POTASSIUM - SERUM 2.9 mmol/L (3.5-5.1)
[2019-02-08 21:26] LABS: APTT 25.7 SECONDS (22.8-39.4); INR 1.11 (0.85-1.17); PROTIME 13.8 SECONDS (11.6-15.0)
[2019-02-09 00:28] VITALS: BP 126/84
== END 2019-02-09 00:29 | disposition other institution (70) ==
LOC: D.ER 20:26
PROVIDERS: Emergency Medicine
DX: F10.129 Alcohol abuse with intoxication, unspecified (principal); Y90.3 Blood alcohol level of 60-79 mg/100 ml; K92.0 Hematemesis; D53.9 Nutritional anemia, unspecified; R94.5 Abnormal results of liver function studies; E80.6 Other disorders of bilirubin metabolism; E87.8 Other disorders of electrolyte and fluid balance, not elsewhere classified; E87.6 Hypokalemia; E83.41 Hypermagnesemia; E87.1 Hypo-osmolality and hyponatremia

== ENCOUNTER 2019-04-22 12:49 | Inpatient (IN) | payer MEDICAID ==
[~2019-04-22] VITALS: Ht 182.9 cm; Wt 86.2 kg
[~2019-04-22 12:49] MED LIST changes: +MAG 6464 MG PO; +SEROQUEL200 MG PO; +SINEQUAN25 MG PO; +VIBRAMYCIN 100100 MG PO
[2019-04-22 13:31] LABS: BASOPHILS 0.4 % (0-2); EOSINOPHILS 0 % (0-7); HEMATOCRIT 33.5 % (42.0-54.0); HEMOGLOBIN 11.3 g/dL (13.5-17.5); IMMATURE GRANULOCYTES 0.2 % (0-5); LYMPHOCYTES 23.2 % (15-50); MCH 35.4 pg (26.0-34.0); MCHC 33.7 g/dL (31.0-37.0); MEAN PLATELET VOLUME 8.7 fL (7.4-10.4); MONOCYTES 10.7 % (2-11); NEUTROPHILS 65.5 % (40-80); RBC 3.19 10x6/uL (4.20-6.10); RDW 17.3 % (11.5-14.5); WBC 9.1 10x3/uL (4.8-10.8)
[2019-04-22 13:45] LABS: PLATELET COUNT 209 10x3/uL (130-400)
[2019-04-22 13:50] LABS: APTT 26.7 SECONDS (22.8-39.4)
[2019-04-22 13:51] LABS: INR 1.07 (0.85-1.17); PROTIME 13.8 SECONDS (11.6-15.0)
[2019-04-22 14:10] LABS: ALKALINE PHOSPHATASE 136 U/L (30-120); ALT (SGPT) 26 U/L (10-68); BILIRUBIN - TOTAL 1.85 mg/dL (0.2-1.3); CALC OSMOLALITY 270 mosm/kg (275-300); CALCIUM 7.4 mg/dL (8.5-10.1); CARBON DIOXIDE 30.6 mmol/L (21.0-32.0); CHLORIDE - SERUM 92 mmol/L (98-107); CKMB 3.4 U/L (0.0-3.6); CREATINE KINASE 219 UL (21-232); GLUCOSE 115 mg/dL (74-106); MAGNESIUM - SERUM 1.1 mg/dL (1.8-2.4); SODIUM 135 mmol/L (136-145); TROPONIN-I < 0.017 ng/mL (0.000-0.060); UREA NITROGEN 13 mg/dL (7-18); eGFR NON AFRICAN AMERICAN 82 mL/min (90-120)
[2019-04-22 14:38] LABS: POTASSIUM - SERUM 2.3 mmol/L (3.5-5.1)
[2019-04-22 15:02] VITALS: BP 147/95
--- NOTE | 2019-04-22 17:35 | NUR ---
RECEIVED PATIENT FROM ER. ALERT AND ORIENTED. C/O NAUSEA. NO C/O PAIN. NO S/S OF ACUTE DISTRESS NOTED. IV TO LEFT FOREARM, MVI INFUSING @ 125ML/HR. SITE PATENT WITHOUT REDNESS OR SWELLING. DENIES ANY NEEDS AT THIS TIME. CALL LIGHT IN REACH. WILL CONTINUE TO MONITOR.
[2019-04-22 18:13] VITALS: BP 138/96; BMI 25.8
[2019-04-22 18:47] LABS: % SATURATION 60 % (15-55); IRON 118 ug/dl (35-150); TOTAL IRON BIND CAPACITY 194 ug/dl (260-445); UNSAT IRON BIND CAPACITY 76 ug/dl (150-375)
--- NOTE | 2019-04-22 18:59 | NUR ---
ALERT AND ORIENTED. NO C/O PAIN. NO S/S OF ACUTE DISTRESS NOTED. DENIES ANY NEEDS AT THIS TIME. CALL LIGHT IN REACH. WILL CONTINUE TO MONITOR.
[2019-04-23] VITALS: BP 133/85
[2019-04-23 02:03] LABS: MAGNESIUM - SERUM 2.4 mg/dL (1.8-2.4)
[2019-04-23 02:04] LABS: POTASSIUM - SERUM 2.6 mmol/L (3.5-5.1)
--- NOTE | 2019-04-23 02:29 | NUR ---
PT RESTING IN BED. ALERT AND ORIENTED. NO SIGNS OF DISTRESS. BREATHING EVEN AND UNLABORED. IV SITE LT AC DRESSING CLEAN DRY AND INTACT. NO SIGNS OF INFECTION OR INFULTRATION. LUNG SOUNDS CLEAR. BOWEL SOUNDS ACTIVE. SKIN CLEAN DRY AND INTACT. NO LOWER LEG SWELLING PRESENT. WILL CONTINUE PLAN OF CARE. CALL LIGHT IN REACH. BED LOWERED AND LOCKED. BED RAILS UPX1.
--- NOTE | 2019-04-23 07:20 | NUR ---
ALERT AND ORIENTED, RESTING IN BED. NO C/O PAIN. NO S/S OF ACUTE DISTRESS NOTED. IV TO LEFT FOREARM, MVI INFUSING @ 125ML/HR AND NS INFUSING @ 125ML/HR. SITE PATENT WITHOUT REDNESS OR SWELLING. POTASSIUM 2.6 THIS AM, FOLLOWING ELECTROLYTE PROTOCOL. DENIES ANY NEEDS AT THIS TIME. CALL LIGHT IN REACH. WILL CONTINUE TO MONITOR.
[2019-04-23 07:49] LABS: BASOPHILS 0.4 % (0-2); EOSINOPHILS 0.2 % (0-7); HEMATOCRIT 30.4 % (42.0-54.0); HEMOGLOBIN 10.1 g/dL (13.5-17.5); IMMATURE GRANULOCYTES 0.2 % (0-5); LYMPHOCYTES 29.2 % (15-50); MCH 35.9 pg (26.0-34.0); MCHC 33.2 g/dL (31.0-37.0); MEAN PLATELET VOLUME 8.8 fL (7.4-10.4); MONOCYTES 15.1 % (2-11); NEUTROPHILS 54.9 % (40-80); RBC 2.81 10x6/uL (4.20-6.10); RDW 17.2 % (11.5-14.5)
[2019-04-23 08:05] LABS: MCV 108.2 fL (80.0-100.0); PLATELET COUNT 135 10x3/uL (130-400); WBC 5.2 10x3/uL (4.8-10.8)
[2019-04-23 08:30] LABS: ALBUMIN 2.6 g/dL (3.4-5.0); ALKALINE PHOSPHATASE 121 U/L (30-120); ALT (SGPT) 27 U/L (10-68); BILIRUBIN - TOTAL 2.18 mg/dL (0.2-1.3); CALCIUM 7.3 mg/dL (8.5-10.1); CARBON DIOXIDE 30.5 mmol/L (21.0-32.0); CHLORIDE - SERUM 97 mmol/L (98-107); CKMB 1.3 U/L (0.0-3.6); CREATINE KINASE 120 UL (21-232); CREATININE - SERUM 0.9 mg/dL (0.6-1.3); GLUCOSE 115 mg/dL (74-106); PROTEIN - SERUM 5.9 g/dL (6.4-8.2); SODIUM 134 mmol/L (136-145); eGFR NON AFRICAN AMERICAN > 90 mL/min (90-120)
--- NOTE | 2019-04-23 08:46 | NUR ---
I have reviewed this patient and I concur with the Shift Assessment completed by the Licensed Practical Nurse today this shift.
[2019-04-23 09:02] LABS: CALC OSMOLALITY 267 mosm/kg (275-300); UREA NITROGEN 9 mg/dL (7-18)
[2019-04-23 09:04] LABS: POTASSIUM - SERUM 2.8 mmol/L (3.5-5.1)
[2019-04-23 09:18] VITALS: BP 144/100
[2019-04-23 11:47] LABS: UDS - AMPHET NEGATIVE QUAL (NEGATIVE); UDS - BARB NEGATIVE QUAL (NEGATIVE); UDS - BENZO NEGATIVE QUAL (NEGATIVE); UDS - COCAINE NEGATIVE QUAL (NEGATIVE); UDS - OPIATE NEGATIVE QUAL (NEGATIVE); UDS - PCP NEGATIVE QUAL (NEGATIVE); UDS - THC NEGATIVE QUAL (NEGATIVE)
[2019-04-23 12:34] LABS: BILIRUBIN NEGATIVE (NEGATIVE); GLUCOSE NEGATIVE (NEGATIVE); KETONE NEGATIVE (NEGATIVE); NITRITE NEGATIVE (NEGATIVE)
[2019-04-23 15:10] VITALS: Ht 182.9 cm; Wt 86.2 kg
--- NOTE | 2019-04-23 16:27 | NUR ---
I have reviewed this patient and I concur with the Shift Assessment completed by the Licensed Practical Nurse today this shift.
[2019-04-23 16:56] VITALS: BP 145/91
--- NOTE | 2019-04-23 18:27 | NUR ---
ALERT AND ORIENTED. NO C/O PAIN. NO S/S OF ACUTE DISTRESS NOTED. DENIES ANY NEEDS AT THIS TIME. CALL LIGHT IN REACH. WILL CONTINUE TO MONITOR.
[2019-04-23 20:00] VITALS: BP 118/73
--- NOTE | 2019-04-24 02:05 | NUR ---
I have reviewed this patient and I concur with the Shift Assessment completed by the Licensed Practical Nurse today this shift.
--- NOTE | 2019-04-24 02:51 | NUR ---
PT RESTING IN BED. EYES CLOSED. NO SIGNS OF DISTRESS. BREATHING EVEN AND UNLABORED. IV SITE RT HAND DRESSING CLEAN DRY AND INTACT. NO SIGNS OF INFECTION OR INFULTRATION. SKIN CLEAN DRY AND INTACT. BOWEL SOUNDS HYPERACTIVE. NO LOWER LEG SWELLING PRESENT. WILL CONTINUE PLAN OF CARE. CALL LIGHT IN REACH. BED LOWERED AND LOCKED. BED RAILS UPX2
[2019-04-24 04:00] VITALS: BP 143/90
[2019-04-24 05:24] LABS: BASOPHILS 0.5 % (0-2); EOSINOPHILS 0.7 % (0-7); HEMATOCRIT 28.6 % (42.0-54.0); HEMOGLOBIN 9.3 g/dL (13.5-17.5); IMMATURE GRANULOCYTES 0.2 % (0-5); LYMPHOCYTES 26.6 % (15-50); MCHC 32.5 g/dL (31.0-37.0); MEAN PLATELET VOLUME 9.4 fL (7.4-10.4); MONOCYTES 11.1 % (2-11); NEUTROPHILS 60.9 % (40-80); PLATELET COUNT 127 10x3/uL (130-400); RBC 2.58 10x6/uL (4.20-6.10); RDW 17.2 % (11.5-14.5); WBC 4.3 10x3/uL (4.8-10.8)
[2019-04-24 05:29] LABS: MCV 110.9 fL (80.0-100.0)
[2019-04-24 05:40] LABS: ALBUMIN 2.2 g/dL (3.4-5.0); ALKALINE PHOSPHATASE 100 U/L (30-120); ALT (SGPT) 27 U/L (10-68); BILIRUBIN - TOTAL 1.22 mg/dL (0.2-1.3); CALCIUM 7.3 mg/dL (8.5-10.1); CARBON DIOXIDE 31.1 mmol/L (21.0-32.0); CHLORIDE - SERUM 104 mmol/L (98-107); CREATININE - SERUM 0.9 mg/dL (0.6-1.3); GLUCOSE 133 mg/dL (74-106); MAGNESIUM - SERUM 2.1 mg/dL (1.8-2.4); PROTEIN - SERUM 5.3 g/dL (6.4-8.2); SODIUM 141 mmol/L (136-145); eGFR NON AFRICAN AMERICAN > 90 mL/min (90-120)
[2019-04-24 05:41] LABS: CALC OSMOLALITY 280 mosm/kg (275-300); UREA NITROGEN 6 mg/dL (7-18)
--- NOTE | 2019-04-24 07:00 | NUR ---
RESTING IN BED WITH EYES CLOSED. RESPIRATIONS EVEN AND UNLABORED. NO S/S OF ACUTE DISTRESS NOTED. IV TO RIGHT HAND, NS INFUSING @ 125ML/HR AND ZOFRAN DRIP @ 4.7ML/HR. SITE PATENT WITHOUT REDNESS OR SWELLING. CALL LIGHT IN REACH. WILL CONTINUE TO MONITOR.
[2019-04-24 09:03] VITALS: BP 131/91
[2019-04-24 12:10] VITALS: BP 132/86
--- NOTE | 2019-04-24 14:53 | MORECARE ---
CASE MANAGEMENT DISCHARGE SUMMARY PATIENT: ROSEMARIE DA SILVA UNIT: [id number] ADM DATE: 04/22/19 AGE: 58 : 62 SEX: M ROOM/BED: D.2238 AUTHOR: MEILTA ENRIQUE PHYSICIAN: REFERRING PHYSICIAN: TAMARA CINTRON MD DATE OF SERVICE: 04/24/19 Discharge Plan Patient Name: ROSEMARIE DA SILVA [facility] [facility] 1960 Planned Disposition: Home Anticipated Discharge Date: 04/24/19 Discharge Date: Expected LOS: 2 Initial Reviewer: [email or web address] Initial Review Date: 04/22/2019 Generated: 04/24/19 3:52 pm Patient Name: ROSEMARIE DA SILVA Page [phone] at 1453 All edits/amendments must be made on the electronic document DICTATION DATE: 04/24/191451 REEL BLADE BENDER FURNACE TENDER: BECKY 04/24/191451 RPT#: [id number] DC DATE: STATUS: ADM IN [facility] [address] [place] [address] END OF REPORT
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
--- NOTE | 2019-04-24 16:10 | NUR ---
I have reviewed this patient and I concur with the Shift Assessment completed by the Licensed Practical Nurse today this shift.
[2019-04-24 17:24] VITALS: BP 149/91
--- NOTE | 2019-04-24 17:48 | NUR ---
OT NOTE: PT COMPLETED SUPINE TO SIT WITH CGA. PT COMPLETED SIT TO STAND WITH CGA. PT COMPLETED EOB SITTING WITH SPV. PT COMPLETED BUE AROM EXS AT EOB WITH SBA. PT OCMPLETED FACE WASH WITH SET UP. [phone] THANK YOU,MINNIE HUNTER
--- NOTE | 2019-04-24 18:32 | NUR ---
OT NOTE: PT STATED HE HAD A PROCEDURE TODAY AND COULD NOT DO THERAPY. CONSULTED WITH NURSE. PT DID NOT HAVE A PROCEDURE. PT COMPLETED EOB SITTING BALANCE WITH SBA/CGA. PT COMPLETED FEDE/DOFF SOCKS WITH SBA. PT COMPLETED SIT TO SUPINE WITH SBA. [phone] THANK YOU,MINNIE HUNTER
--- NOTE | 2019-04-24 18:42 | NUR ---
ALERT AND ORIENTED. NO C/O PAIN. NO S/S OF ACUTE DISTRESS NOTED. DENIES ANY NEEDS AT THIS TIME. CALL LIGHT IN REACH. WILL CONTINUE TO MONITOR.
[2019-04-24 20:00] VITALS: BP 148/64
--- NOTE | 2019-04-24 22:00 | NUR ---
PT B/P 235/130 MAP: 155. GIVEN NIGHT TIME MEDICATIONS. HCTZ 25 MG, LOPRESSOR 50 MG, AND LISINOPRIL 20MG. WILL RECHECK B/P IN ONE HOUR IF STILL HIGH WILL CALL DOCTOR FOR FURTHER ORDERS. CALL LIGHT IN REACH.
--- NOTE | 2019-04-24 23:00 | NUR ---
PT B/P 212/130 MAP: 152 HEART RATE 68. CALLED ONCALL DOCTOR. NEW ORDER ONE TIME DOSE OF HYDRALAZINE 20MG IV. WILL FALLOW UP IN ONE HOUR. CALL LIGHT IN REACH.
[2019-04-25] VITALS: BP 190/107
--- NOTE | 2019-04-25 01:00 | NUR ---
PT B/P 225/122 MAP: 140. HEART RATE 78. CALL LINE CONSTRUCTION SUPERVISOR DOCTOR. NEW ORDER FOR CLONIDINE 0.1MG. WILL FALLOW UP. CALL LIGHT IN REACH.
--- NOTE | 2019-04-25 02:22 | NUR ---
PT B/P 196/107 MAP: 128 HEART RATE 73. WILL CONTINUE TO MONITOR CLOSELY. PT STATES NO NEEDS AT THIS TIME. CALL LIGHT IN REACH.
--- NOTE | 2019-04-25 02:31 | NUR ---
PT RESTING IN BED. EYES CLOSED. NO SIGNS OF DISTRESS. BREATHING EVEN AND UNLABORED. IV SITE LT WRIST. DRESSING CLEAN DRY AND INTACT. NO SIGNS OF INFECTION OR INFULTRATION. LUNG SOUNDS CLEAR. BOWEL SOUNDS ACTIVE. NO LOWER LEG SWELLING PRESENT. WILL CONTINUE PLAN OF CARE. CALL LIGHT IN REACH. BED LOWERED AND LOCKED. BED RAILS UPX2.
--- NOTE | 2019-04-25 03:02 | NUR ---
I have reviewed this patient and I concur with the Shift Assessment completed by the Licensed Practical Nurse today this shift.
--- NOTE | 2019-04-25 03:40 | NUR ---
PT B/P 185/106 MAP: 112. WILL CONTINUE TO CLOSELY MONITOR. PT STATES NO PROBLEMS AT THIS TIME. CALL LIGHT IN REACH. BED LOWERED AND LOCKED.
[2019-04-25 04:00] VITALS: BP 148/96
[2019-04-25 06:13] LABS: BASOPHILS 1.2 % (0-2); EOSINOPHILS 2.2 % (0-7); HEMATOCRIT 30.7 % (42.0-54.0); IMMATURE GRANULOCYTES 0.2 % (0-5); LYMPHOCYTES 37.6 % (15-50); MCH 36.5 pg (26.0-34.0); MCHC 32.6 g/dL (31.0-37.0); MEAN PLATELET VOLUME 9.5 fL (7.4-10.4); MONOCYTES 9.1 % (2-11); NEUTROPHILS 49.7 % (40-80); RBC 2.74 10x6/uL (4.20-6.10); RDW 17.1 % (11.5-14.5)
[2019-04-25 06:37] LABS: ALBUMIN 2.3 g/dL (3.4-5.0); ALKALINE PHOSPHATASE 127 U/L (30-120); ALT (SGPT) 92 U/L (10-68); BILIRUBIN - TOTAL 0.73 mg/dL (0.2-1.3); CALC OSMOLALITY 274 mosm/kg (275-300); CALCIUM 7.8 mg/dL (8.5-10.1); CARBON DIOXIDE 29.2 mmol/L (21.0-32.0); CHLORIDE - SERUM 106 mmol/L (98-107); GLUCOSE 98 mg/dL (74-106); MAGNESIUM - SERUM 1.9 mg/dL (1.8-2.4); POTASSIUM - SERUM 4.6 mmol/L (3.5-5.1); PROTEIN - SERUM 5.4 g/dL (6.4-8.2); SODIUM 139 mmol/L (136-145); UREA NITROGEN 3 mg/dL (7-18); eGFR NON AFRICAN AMERICAN 82 mL/min (90-120)
[2019-04-25 06:54] LABS: PLATELET COUNT 180 10x3/uL (130-400); WBC 5.9 10x3/uL (4.8-10.8)
[2019-04-25 08:44] VITALS: BP 129/83
--- NOTE | 2019-04-25 09:00 | NUR ---
AWAKE WITH SOME LETHARGY NOTED. IVF INFUSING AT PRESCRIBED RATE WITH NO S/S OF INFECTION/INFILTRATION.PATIENT HYPERTENSIVE WITH APRESOLINE GIVEN PER PRN ORDER. SCD'S INTACT. LUNGS CTA AND HRRR. ABDOMEN SOFT WITH BOWEL SOUNDS NOTED. ENCOURAGED TO USE CALL LIGHT FOR ASSSIT.
[2019-04-25] MEDS ORDERED: K-DUR20 MEQ PO (11:03)
[2019-04-25] MEDS ORDERED: FOLIC ACID1 MG PO (11:03)
[2019-04-25] MEDS ORDERED: VITAMIN B-1100 M1 PO (11:03)
--- NOTE | 2019-04-25 13:58 | MORECARE ---
CASE MANAGEMENT DISCHARGE SUMMARY PATIENT: ROSEMARIE DA SILVA UNIT: [id number] ADM DATE: 04/22/19 AGE: 58 : 62 SEX: M ROOM/BED: D.2238 AUTHOR: IVA,DOC PHYSICIAN: REFERRING PHYSICIAN: TAMARA CINTRON MD DATE OF SERVICE: 04/25/19 Discharge Plan Patient Name: ROSEMARIE DA SILVA Facility: [facility]:[place] : 1960 Planned Disposition: Home Anticipated Discharge Date: 04/24/19 Discharge Date: Expected LOS: 2 Initial Reviewer: [email or web address] Initial Review Date: 04/22/2019 Generated: 04/25/19 2:58 pm Comments DCP- Discharge Planning Updated by [email or web address]: Savannah Kaur on 04/25/19 12:[address] Discharging home today. Patient states he will call a taxi when ready. States he has money locked in a safe. I notified Ligia, park activities coordinator, that he needs his money that is locked in the safe. Home today, declines need for home health. DCP- Discharge Planning Updated by [email or web address]: Savannah Kaur on 04/24/19 1:[address] Patient Name: ROSEMARIE DA SILVA Admission Status: ER Accout number: [id number] Admission Date: 04-22-2019 : 1960 Admission Diagnosis: Attending: ERIN CINTRON Current LOS: 2 Anticipated DC Date: 04-24-2019 Planned Disposition: Home Primary Insurance: MEDICAID [place] Discharge Planning Comments: CM met with patient to discuss discharge planning/needs, he is alone in the room. He states he mainly lives alone. States, his nephew still comes and goes. States his nephew had him in [place] for one night, then he got out. States he has been at "[facility]" in [place] that was a good program. I encouraged him to go back to an alcohol abuse rehab and he states "I've been thinking about going back". He states he has been getting around by using a taxi, friends or family. I provided him with the name and number of local substance abuse programs and rehabs. CM will continue to follow and assist with discharge planning/needs. Tennis Court Attendant: Savannah Kaur DCPIA - Discharge Planning Initial Assessment Updated by [id number]: Savannah Garciabrigida on 04/24/19 2:55 pm * Is the patient Alert and Oriented? Yes * How many steps to enter\\exit or inside your home? * PCP Janet Quigley APN in [place] * Pharmacy [facility] on [address] * Preadmission Environment Home with Family * ADLs Independent * Equipment None * List name and contact numbers for known caregivers / representatives who currently or will assist patient after discharge: Akbar maría - [phone] [facility] [phone] * Verbal permission to speak to the caregivers and representatives has been obtained from the patient. Yes * Community resources currently utilized None * Additional services required to return to the preadmission environment? No * Can the patient safely return to the preadmission environment? Yes * Has this patient been hospitalized within the prior 30 days at any hospital? Yes Last DP export: 04/24/19 2:03 pm Patient Name: ROSEMARIE DA SILVA Page 72014 at 1358 All edits/amendments must be made on the electronic document DICTATION DATE: 04/25/19 1358 MUSIC ADAPTER: BECKY 04/25/19 1358 RPT#: [id number] PR DATE: STATUS: ADM IN [facility] [address] [place] [address] END OF REPORT
--- NOTE | 2019-04-25 17:04 | NUR ---
IV DISCONTINUED AND VERBALIZED UNDERSTANDING OF DISCHARGE INSTRUCTIONS. PATIENT STATED HE WOULD CALL HIMSELF A CAB ONCE DOWNSTAIRS. STABLE AT TIME OF DEPARTURE.
== END 2019-04-25 17:09 | disposition home or self-care (01) | DRG 640 ==
LOC: D.ER 12:49 → D.MS 15:56
PROVIDERS: Family Medicine; ADMIT Emergency Medicine; ATTEND Emergency Medicine
DX: E87.6 Hypokalemia (principal); G92 Toxic encephalopathy; F17.203 Nicotine dependence unspecified, with withdrawal; E83.51 Hypocalcemia; E87.1 Hypo-osmolality and hyponatremia; F10.129 Alcohol abuse with intoxication, unspecified; E83.42 Hypomagnesemia; D53.9 Nutritional anemia, unspecified; I10 Essential (primary) hypertension; F32.9 Major depressive disorder, single episode, unspecified

== ENCOUNTER 2019-05-15 22:30 | Observation (INO) | payer MEDICAID ==
[~2019-05-15] VITALS: Ht 182.9 cm; Wt 76.5 kg
[~2019-05-15 22:30] MED LIST changes: +FOLIC ACID1 MG PO; +K-DUR20 MEQ PO; +VITAMIN B-1100 M1 PO
--- NOTE | 2019-05-15 22:37 | NUR ---
POISON CONTROL CALLED
[2019-05-15 22:41] LABS: BASOPHILS 0.3 % (0-2); EOSINOPHILS 0.3 % (0-7); HEMATOCRIT 33.2 % (42.0-54.0); HEMOGLOBIN 11.3 g/dL (13.5-17.5); IMMATURE GRANULOCYTES 0.2 % (0-5); LYMPHOCYTES 44.9 % (15-50); MCH 36.6 pg (26.0-34.0); MCV 107.4 fL (80.0-100.0); MEAN PLATELET VOLUME 9.3 fL (7.4-10.4); MONOCYTES 18.5 % (2-11); NEUTROPHILS 35.8 % (40-80); RBC 3.09 10x6/uL (4.20-6.10); RDW 14.1 % (11.5-14.5)
[2019-05-15 22:42] LABS: PLATELET COUNT 224 10x3/uL (130-400)
[2019-05-15 22:55] LABS: ALBUMIN 3.4 g/dL (3.4-5.0); BILIRUBIN - TOTAL 1.06 mg/dL (0.2-1.3); CALCIUM 8.6 mg/dL (8.5-10.1); CARBON DIOXIDE 26.7 mmol/L (21.0-32.0); CREATININE - SERUM 1.3 mg/dL (0.6-1.3); PROTEIN - SERUM 7.2 g/dL (6.4-8.2)
[2019-05-15 22:58] LABS: ANION GAP 15.7 mmol/L (8-16); POTASSIUM - SERUM 2.4 mmol/L (3.5-5.1)
--- NOTE | 2019-05-15 23:00 | NUR ---
PT UP TO BATHROOM WITH STEADY GAIT. STOOL X 1
--- NOTE | 2019-05-15 23:24 | NUR ---
PATIENT PRESENTS TO ER IN ROOM 18, DUE TO TAKING 12 AMBIEN ON YESTERDAY AND 20 AMBIEN TODAY HOWEVER HE DENIES BEING SUICIDIAL AND HAS SAID MORE THAN ONCE, "I JUST COULDN'T SLEEP" EVEN THOUGH HE ADMITS THAT THERE WAS A POTENTIAL OF THE EXCESSIVE AMBIEN "CUTTING HIS LIGHTS OUT". THE PATIENT WILL BE PUT ON 1:1 DUE TO THE EXCESSIVE AMOUNT OF AMBIEN.
[2019-05-15 23:29] LABS: BILIRUBIN NEGATIVE (NEGATIVE); GLUCOSE NEGATIVE (NEGATIVE); KETONE NEGATIVE (NEGATIVE); NITRITE NEGATIVE (NEGATIVE); SPECIFIC GRAVITY 1.015 (1.005-1.020); UROBILINOGEN 4 mg/dL (NORMAL)
[2019-05-15 23:31] LABS: BACTERIA FEW /hpf (NEGATIVE); EPITHELIAL CELLS 0-5 /hpf (0-5); RED CELLS - URINE 0-5 /hpf (0-5); UDS - AMPHET NEGATIVE QUAL (NEGATIVE); UDS - BARB NEGATIVE QUAL (NEGATIVE); UDS - BENZO POSITIVE QUAL (NEGATIVE); UDS - COCAINE NEGATIVE QUAL (NEGATIVE); UDS - OPIATE NEGATIVE QUAL (NEGATIVE); UDS - PCP NEGATIVE QUAL (NEGATIVE); UDS - THC NEGATIVE QUAL (NEGATIVE); WHITE CELLS - URINE 0-5 /hpf (NEGATIVE)
[2019-05-16] VITALS (14 sets, daily range): BP systolic 101–149; BP diastolic 69–108; Ht 182.9 cm; Wt 76.5 kg
--- NOTE | 2019-05-16 | NUR ---
PT UP TO BATHROOM TO HAVE BM. PT ABLE TO AMBULATE WITH STEADY GAIT
--- NOTE | 2019-05-16 01:27 | NUR ---
BOLUS COMPLETE, NS 125 ML/HR STOPPED SEE EMAR
--- NOTE | 2019-05-16 02:13 | NUR ---
PT ARRIVED IN THE ER. PT HOOKED TO ICU MONITORS. PT A&O X4. PT SHOWS NO S/SX OF DISTRESS/DISCOMFORT NOTED. VSS. PT AWARE OF WHY HE IS IN HE HOSIPTAL. PT STATED HE IS NAUSEATED. EMESIS BAG GIVEN THE PT AND STARTED TO STICK HIS FINGERS DOWN HIS THROAT TO MAKE HIM SELF VOMIT. IMMIDIATLY TOLD THE PT TO TAKE HIS FINGERS OUT OF HIS MOUTH AND THE PT STATED "THAT IS THE ONLY WAY TO DO IT". PT THEN TO COUGH AND GRUNT INTO HIS EMISIS BAG. PRN RYAN GIVEN TO THE PT. ASKED THE PT IF HE WAS TRYING TO KILL HIMSELF AND HE STATED NO. PT STATED HE TOOK ABOUT 30 ZOFRAN AND SOME VODAKA. WHENEVER ASKED WHY HE STATED "I DONT KNOW". PT HAS A BANDAID TO HIS FOREHEAD AND A CHARLINE WRAP TO HIS RIGHT FA. CALL LIGHT IN REACH. WILL CONT POC.
[2019-05-16 03:55] LABS: BASOPHILS 0.4 % (0-2); EOSINOPHILS 0.2 % (0-7); HEMATOCRIT 33.5 % (42.0-54.0); HEMOGLOBIN 11.2 g/dL (13.5-17.5); IMMATURE GRANULOCYTES 0.2 % (0-5); LYMPHOCYTES 26.9 % (15-50); MCH 36.5 pg (26.0-34.0); MCHC 33.4 g/dL (31.0-37.0); MCV 109.1 fL (80.0-100.0); MEAN PLATELET VOLUME 9.7 fL (7.4-10.4); NEUTROPHILS 51.3 % (40-80); PLATELET COUNT 196 10x3/uL (130-400); RBC 3.07 10x6/uL (4.20-6.10); RDW 14.1 % (11.5-14.5)
[2019-05-16 04:04] LABS: APTT 25.8 SECONDS (22.8-39.4); INR 0.98 (0.85-1.17); PROTIME 12.9 SECONDS (11.6-15.0)
[2019-05-16 04:14] LABS: % SATURATION 35 % (15-55); IRON 65 ug/dl (35-150); TOTAL IRON BIND CAPACITY 185 ug/dl (260-445); UNSAT IRON BIND CAPACITY 120 ug/dl (150-375)
[2019-05-16 04:34] LABS: ANION GAP 12.8 mmol/L (8-16); CALCIUM 8.3 mg/dL (8.5-10.1); CARBON DIOXIDE 27.1 mmol/L (21.0-32.0); CREATININE - SERUM 1.3 mg/dL (0.6-1.3); PHOSPHOROUS 2.9 mg/dL (2.5-4.9)
[2019-05-16 04:35] LABS: MAGNESIUM - SERUM 1.4 mg/dL (1.8-2.4); POTASSIUM - SERUM 2.9 mmol/L (3.5-5.1)
--- NOTE | 2019-05-16 09:00 | NUR ---
NO NEEDS NOTED AT THIS TIME, WILL CON'T TO MONITOR
--- NOTE | 2019-05-16 11:15 | NUR ---
REASSESSMENT COMPLETE, NO CHNAGES NOTED, VSS, CALL LIGHT IN REACH
--- NOTE | 2019-05-16 13:15 | NUR ---
PT RESTING AT THIS TIME, NO NEEDS NOTED, WILL CON'T TO MONITOR
[2019-05-16 14:59] LABS: BILIRUBIN NEGATIVE (NEGATIVE); GLUCOSE NEGATIVE (NEGATIVE); KETONE NEGATIVE (NEGATIVE); NITRITE NEGATIVE (NEGATIVE); UROBILINOGEN NORMAL (NORMAL)
--- NOTE | 2019-05-16 15:07 | NUR ---
REPORT CALLED TO [facility] ON [facility] AT THIS TIME,
--- NOTE | 2019-05-16 15:20 | NUR ---
PATIENT RECEIVED TO ROOM. ALERT AND ORIENTED X3. DENIES ANY PAIN OR DISCOMFORT AT THIS TIME. ENCOURAGED TO USE CALL LIGHT FOR ASSSIT. SUICIDE PRECAUTRIONS IN PLACEIVF INFUSING TO LEFT FOREARM AT PRESCRIBED RATE.
--- NOTE | 2019-05-16 17:51 | NUR ---
PATIENT REFUSES GARCIA STATES DOESN'T HAVE ANY PROBELMS PEEING. ABDOMEN SOFT WITH AND NONTENDER ON PALPATIONS. NO S/S OF RISK TO SELF AT THIS TIME WITH CONTINUED ONE ON ONE CARE
--- NOTE | 2019-05-16 21:03 | MORECARE ---
CASE MANAGEMENT DISCHARGE SUMMARY PATIENT: ROSEMARIE DA SILVA UNIT: [id number] ADM DATE: 05/15/19 AGE: 59 : 62 SEX: M ROOM/BED: D.2209 AUTHOR: MELITA ENRIQUE PHYSICIAN: REFERRING PHYSICIAN: HILLARY DANIELS MD DATE OF SERVICE: 05/16/19 Discharge Plan Patient Name: ROSEMARIE DA SILVA Facility: [facility]:[place] : 1960 Planned Disposition: Anticipated Discharge Date: Discharge Date: Expected LOS: Initial Reviewer: [email or web address] Initial Review Date: 05/16/2019 Generated: 05/16/19 10:02 pm Patient Name: ROSEMARIE DA SILVA Page 92230 at 2103 All edits/amendments must be made on the electronic document DICTATION DATE: 05/16/192101 KISS MACHINE OPERATOR: BECKY 05/16/192101 RPT#: [id number] DC DATE: STATUS: ADM IN [facility] [address] [place] [address] END OF REPORT
[2019-05-17] VITALS (7 sets, daily range): BP systolic 121–145; BP diastolic 75–93
[2019-05-17 05:31] LABS: BASOPHILS 0.4 % (0-2); HEMATOCRIT 29.3 % (42.0-54.0); HEMOGLOBIN 9.6 g/dL (13.5-17.5); IMMATURE GRANULOCYTES 0.2 % (0-5); LYMPHOCYTES 31.5 % (15-50); MCH 36.1 pg (26.0-34.0); MCHC 32.8 g/dL (31.0-37.0); MCV 110.2 fL (80.0-100.0); MEAN PLATELET VOLUME 9.4 fL (7.4-10.4); MONOCYTES 15.1 % (2-11); NEUTROPHILS 51.8 % (40-80); PLATELET COUNT 186 10x3/uL (130-400); RBC 2.66 10x6/uL (4.20-6.10)
[2019-05-17 05:54] LABS: CARBON DIOXIDE 26.3 mmol/L (21.0-32.0); CHLORIDE - SERUM 102 mmol/L (98-107); GLUCOSE 116 mg/dL (74-106); MAGNESIUM - SERUM 1.4 mg/dL (1.8-2.4); SODIUM 134 mmol/L (136-145); eGFR NON AFRICAN AMERICAN 81 mL/min (90-120)
[2019-05-17 05:56] LABS: CALC OSMOLALITY 265 mosm/kg (275-300); PHOSPHOROUS 1.8 mg/dL (2.5-4.9); POTASSIUM - SERUM 3.5 mmol/L (3.5-5.1); UREA NITROGEN 4 mg/dL (7-18)
--- NOTE | 2019-05-17 07:50 | NUR ---
PATIENT IN BED WITH IV INTACT. NO COMPLAINTS OR SIGNS OF DISTRESS. RECIEVED ATIVAN EARLIER FOR ANXIETY AND SHAKING. WANTING LIBRIUM WHEN DUE AT 0900. SITTER AT SIDE. CALL LIGHT WITHIN REACH.
--- NOTE | 2019-05-17 09:23 | NUR ---
PATIENT RECIEVED SCHEDULED MEDS AND LIBRIUM. PATIENT HAS IV INTACT. SORE TO FOREHEAD NOTED. NO COMPLAINTS AT THIS TIME. SITTER AT SIDE. CALL LIGHT WITHIN REACH.
--- NOTE | 2019-05-17 11:00 | NUR ---
PATIENT RECIEVED ATIVAN FOR SHAKING AND ANXIETY. IV INTACT. NO COMPLAINTS OR SIGNS OF DISTRESS. CALL LIGHT WITHIN REACH.
--- NOTE | 2019-05-17 14:00 | NUR ---
SPOKE WITH DR. MASTERSON ABOUT PATIENT BEING ON SUICIDE PRECAUTIONS DUE TO THE AMOUNT OF ALCOHOL AND AMBIEN HE HAD TAKIEN. STATED HE NEEDS TO REMAIN ON SUICIDE WATCH AND BE DISCHARGED TO A REHAB.
--- NOTE | 2019-05-17 14:38 | MORECARE ---
CASE MANAGEMENT DISCHARGE SUMMARY PATIENT: ROSEMARIE DA SILVA UNIT: [id number] ADM DATE: 05/15/19 AGE: 59 : 62 SEX: M ROOM/BED: D.2209 AUTHOR: MELITA ENRIQUE PHYSICIAN: REFERRING PHYSICIAN: HILLARY DANIELS MD DATE OF SERVICE: 05/17/19 Discharge Plan Patient Name: ROSEMARIE DA SILVA [facility] : 1960 Planned Disposition: Anticipated Discharge Date: Discharge Date: Expected LOS: Initial Reviewer: [email or web address] Initial Review Date: 05/16/2019 Generated: 05/17/19 3:37 pm Last DP export: 05/16/19 8:03 p Patient Name: ROSEMARIE DA SILVA Page 14420 at 1438 All edits/amendments must be made on the electronic document DICTATION DATE: 05/17/19 1437 SIMULATION EDUCATOR: BECKY 05/17/19 1437 RPT#: [id number] DC DATE: STATUS: ADM IN [facility] [address] [place] [address] END OF REPORT
--- NOTE | 2019-05-17 14:45 | MORECARE ---
CASE MANAGEMENT DISCHARGE SUMMARY PATIENT: ROSEMARIE DA SILVA UNIT: [id number] ADM DATE: 05/15/19 AGE: 59 : 62 SEX: M ROOM/BED: D.2209 AUTHOR: MELITA ENRIQUE PHYSICIAN: REFERRING PHYSICIAN: HILLARY DANIELS MD DATE OF SERVICE: 05/17/19 Discharge Plan Patient Name: ROSEMARIE DA SILVA Facility: [facility]:[place] : 1960 Planned Disposition: Anticipated Discharge Date: Discharge Date: Expected LOS: Initial Reviewer: [email or web address] Initial Review Date: 05/16/2019 Generated: 05/17/19 3:44 pm External Providers External Provider: [facility] Next Contact Date: Service Request Date: Service Type: Resolution: Reviewer: Comments: Last DP export: 05/17/19 1:38 p Patient Name: ROSEMARIE DA SILVA Page [id number] at 1445 All edits/amendments must be made on the electronic document DICTATION DATE: 05/17/19 1444 SAMPLE PREP TECHNICIAN: DM 05/17/19 1444 RPT#: [id number] DC DATE: STATUS: ADM IN [facility] [address] [place] [address] END OF REPORT
--- NOTE | 2019-05-17 14:59 | MORECARE ---
CASE MANAGEMENT DISCHARGE SUMMARY PATIENT: ROSEMARIE DA SILVA UNIT: [id number] ADM DATE: 05/15/19 AGE: 59 : 62 SEX: M ROOM/BED: D.2209 AUTHOR: MELITA ENRIQUE PHYSICIAN: REFERRING PHYSICIAN: HILLARY DANIELS MD DATE OF SERVICE: 05/17/19 Discharge Plan Patient Name: ROSEMARIE DA SILVA Facility: [facility]:[place] : 1960 Planned Disposition: Anticipated Discharge Date: Discharge Date: Expected LOS: Initial Reviewer: [email or web address] Initial Review Date: 05/16/2019 Generated: 05/17/19 3:58 pm DCP- Discharge Planning Updated by [email or web address]: Zamzam Ruiz on 05/17/19 1:[address] Patient Name: ROSEMARIE DA SILVA Admission Status: ER Accout number: [id number] Admission Date: 05-15-2019 : 1960 Admission Diagnosis: Attending: HILLARY DANIELS Current LOS: 2 Anticipated DC Date: Planned Disposition: Primary Insurance: MEDICAID [place] Discharge Planning Comments: CM CALLED [facility]. FAXED CLINICALS TO INITIATE PROCESS. CM WILL FOLLOW NEEDED. Coroner Technician: Zamzam Ruiz MSN, RN,CM Last DP export: 05/17/19 1:45 p Patient Name: ROSEMARIE DA SILVA Page 68522 at 1459 All edits/amendments must be made on the electronic document DICTATION DATE: 05/17/19 1458 PROTOTYPE ASSEMBLER ELECTRONICS: BECKY 05/17/19 1458 RPT#: [id number] DC DATE: STATUS: ADM IN [facility] [address] [place] [address] END OF REPORT
--- NOTE | 2019-05-17 15:50 | NUR ---
PATIENT RECIEVED ATIVAN AGAIN FOR ANXIETY. IV INTACT. NO COMPLAINTS OR SIGNS OF DISTRESS. CALL LIGHT WITHIN REACH.
--- NOTE | 2019-05-17 17:45 | NUR ---
PATIENT IN BED WITH IV INTACT. NO COMPLAINTS OR SIGNS OF DISTRESS. FAMILY AT BEDSIDE. CALL LIGHT WITHIN REACH. SITTER AT SIDE.
--- NOTE | 2019-05-17 19:40 | NUR ---
PATIENT RESTING IN BED WITH NO S/S OF DISTRESS. SITTER AT BEDSIDE. PATIENT REQUESTED ATIVAN WHEN AVAILABLE. PATIENT DENIES OTHER NEEDS AT THIS TIME. BED IN LOWEST POSITION AND CALL LIGHT WITHIN REACH. ENCOURAGED PATIENT TO CALL IF HE HAS NEEDS. WILL CONTINUE TO MONITOR.
[2019-05-18 04:25] VITALS: BP 105/67
[2019-05-18 06:03] LABS: BASOPHILS 0.4 % (0-2); EOSINOPHILS 2.6 % (0-7); HEMATOCRIT 30.9 % (42.0-54.0); HEMOGLOBIN 9.9 g/dL (13.5-17.5); IMMATURE GRANULOCYTES 0.2 % (0-5); LYMPHOCYTES 26.3 % (15-50); MCH 36.4 pg (26.0-34.0); MEAN PLATELET VOLUME 9.2 fL (7.4-10.4); MONOCYTES 18.4 % (2-11); NEUTROPHILS 52.1 % (40-80); PLATELET COUNT 168 10x3/uL (130-400); RBC 2.72 10x6/uL (4.20-6.10); RDW 13.9 % (11.5-14.5); WBC 5.3 10x3/uL (4.8-10.8)
[2019-05-18 06:06] LABS: MCV 113.6 fL (80.0-100.0)
--- NOTE | 2019-05-18 06:15 | NUR ---
SPOKE WITH AZAR FROM [facility]. AZAR STATED THE [facility] HAS ACCEPTED THE PATIENT TO THEIR PSYCH UNIT. TANNING WHEEL FILLER REQUESTED THAT I CONFIRM WITH THE PATIENT THAT HE IS WILLING TO BE ADMITTED TO INPATIENT AND THAT THE UNIT PRIMARILY CONSISTS OF WOMEN IN THEIR 70'S AND 80'S. WHEN I DISCUSSED WITH THE PATIENT HE STATED THAT HE HAS SPOKEN WITH HIS PCP AND THAT HE HAS REQUESTED TO BE SEND TO [facility] IN [place], [place]. HE STATED THAT THE FACILITY WILL TAKE HIM AFTER HE IS "COMPLETELY DETOXED". PATIENT STATED THAT HE HAS ALREADY SPOKEN WITH THE DOCTORS AND DOES NOT WANT TO GO TO [facility]. CALLED AZAR TO LET HER KNOW THE PATIENT'S DECISION.
[2019-05-18 06:16] LABS: CALCIUM 7.7 mg/dL (8.5-10.1); GLUCOSE 112 mg/dL (74-106); UREA NITROGEN 5 mg/dL (7-18)
[2019-05-18 06:35] LABS: CALC OSMOLALITY 273 mosm/kg (275-300); CARBON DIOXIDE 25.4 mmol/L (21.0-32.0); CHLORIDE - SERUM 103 mmol/L (98-107); CREATININE - SERUM 0.9 mg/dL (0.6-1.3); MAGNESIUM - SERUM 1.4 mg/dL (1.8-2.4); SODIUM 138 mmol/L (136-145); eGFR NON AFRICAN AMERICAN > 90 mL/min (90-120)
[2019-05-18 06:37] LABS: PHOSPHOROUS 2.6 mg/dL (2.5-4.9)
--- NOTE | 2019-05-18 07:43 | NUR ---
RECEIVED PT FROM BRIDGE TENDER. PT IS RESTING COMFORTABLY IN BED. REQUESTED PAIN MEDICATION, PROVIDED AT THIS TIME. DENIES ANY NEEDS AT THIS TIME. PT HAS A SITTER OUTSIDE OF ROOM. WILL CONTINUE TO MONITOR.
[2019-05-18 08:33] VITALS: BP 130/92
--- NOTE | 2019-05-18 08:52 | MORECARE ---
CASE MANAGEMENT DISCHARGE SUMMARY PATIENT: ROSEMARIE DA SILVA UNIT: [id number] ADM DATE: 05/15/19 AGE: 59 : 62 SEX: M ROOM/BED: D.2209 AUTHOR: MELITA ENRIQUE PHYSICIAN: REFERRING PHYSICIAN: HILLARY DANIELS MD DATE OF SERVICE: 05/18/19 Discharge Plan Patient Name: ROSEMARIE DA SILVA Facility: [facility]:[place] : 1960 Planned Disposition: Anticipated Discharge Date: Discharge Date: Expected LOS: Initial Reviewer: [id number] Initial Review Date: 05/16/2019 Generated: 05/18/19 9:52 am Comments DCP- Discharge Planning Updated by [email or web address]: Zamzam Ruiz on 05/18/19 7:[address] Patient Name: ROSEMARIE DA SILVA Admission Status: ER Accout number: [id number] Admission Date: 05-15-2019 : 1960 Admission Diagnosis: Attending: HILLARY DANIELS Current LOS: 2 Anticipated DC Date: Planned Disposition: Primary Insurance: MEDICAID [place] Discharge Planning Comments: CM CALLED [facility]. FAXED CLINICALS TO INITIATE PROCESS. CM WILL FOLLOW NEEDED. Boring Machine Operator Production: Zamzam Ruiz MSN, RN,CM Appended by Zamzam Ruiz on 05/18/2019 8:46 CDT: CM CALLED [facility]. FAXED CLINICALS TO INITIATE PROCESS. CM WILL FOLLOW NEEDED. CM RECIEVED CALL FROM DEANA AT THE TRANSFER CENTER. STATED ISLAM MAY ACCEPT PATIENT. SENT UPDATED CLINICALS TO THE [facility] CENTER. WILL AWAIT PLACEMENT. Last DP export: 05/17/19 1:59 p Patient Name: ROSEMARIE DA SILVA Page [id number] at 0852 All edits/amendments must be made on the electronic document DICTATION DATE: 05/18/19851 KNITTING TEACHER: BECKY 05/18/19851 RPT#: [id number] DC DATE: STATUS: [place] [address] END OF REPORT
--- NOTE | 2019-05-18 09:09 | NUR ---
ADMINSTERED MORNING MEDICATION AT THIS TIME. NO DIFFICULTY SWALLOWING. NO S/S OF DISTRESS NOTED. PT IS AMBULATING TO BATHROOM WITHOUT ASSIST. DENIES ANY NEEDS AT THIS TIME. WILL CONTINUE TO MONITOR.
--- NOTE | 2019-05-18 10:06 | NUR ---
HUNG IV MAGNESIUM AT THIS TIME. PT ARM BAND NOT SCANNED DUE TO PT BEING ASLEEP. RESTING COMFORTABL WITH EYES CLOSED. BREATHING EVEN AND UNLABORED. NO S/S OF DISTRESS NOTED. WILL CONTINUE TO MONITOR.
--- NOTE | 2019-05-18 12:24 | NUR ---
PT UP RIGHT IN BED EATING LUNCH. DENIES ANY NEEDS. WILL CONTINUE TO MONITOR.
--- NOTE | 2019-05-18 13:08 | MORECARE ---
CASE MANAGEMENT DISCHARGE SUMMARY PATIENT: ROSEMARIE DA SILVA UNIT: [id number] ADM DATE: 05/15/19 AGE: 59 : 62 SEX: M ROOM/BED: D.2209 AUTHOR: MELITA ENRIQUE PHYSICIAN: REFERRING PHYSICIAN: HILLARY DANIELS MD DATE OF SERVICE: 05/18/19 Discharge Plan Patient Name: ROSEMARIE DA SILVA Facility: [facility]:[place] : 1960 Planned Disposition: Anticipated Discharge Date: Discharge Date: Expected LOS: Initial Reviewer: [id number] Initial Review Date: 05/16/2019 Generated: 05/18/19 2:08 pm Comments DCP- Discharge Planning Updated by [email or web address]: Zamzam Ruiz on 05/18/19 12:[address] Patient Name: ROSEMARIE DA SILVA Admission Status: ER Accout number: [id number] Admission Date: 05-15-2019 : 1960 Admission Diagnosis: Attending: HILLARY DANIELS Current LOS: 2 Anticipated DC Date: Planned Disposition: Primary Insurance: MEDICAID [place] Discharge Planning Comments: CM CALLED [facility]. FAXED CLINICALS TO INITIATE PROCESS. CM WILL FOLLOW NEEDED. Laborer Starch Factory: Zamzam Ruiz MSN, RN,CM Appended by Zamzam Ruiz on 05/18/2019 8:46 CDT: CM CALLED [facility]ACEMENT. FAXED CLINICALS TO INITIATE PROCESS. CM WILL FOLLOW NEEDED. CM RECIEVED CALL FROM DEANA AT THE TRANSFER CENTER. STATED YAZIDI MAY ACCEPT PATIENT. SENT UPDATED CLINICALS TO THE TRANSFER CENTER. WILL AWAIT PLACEMENT. 05/18/2019 @ 1030 RECIEVED CALL FROM DEANA AT THE TRANSFER CENTER HOLDING A CALL FROM SKYE. CM SPOKE WITH SKYE FROM [facility] STATING THEY WILL ACCEPT THE PATIENT SOON HE IS MEDICALLY STABLE, AND HAS A NEGATIVE COVID SCREENING. SPOKE WITH SAKINA TIAN WITH UPDATE. Last DP export: 05/18/19 7:52 a Patient Name: ROSEMARIE DA SILVA Page 19765 at 1308 All edits/amendments must be made on the electronic document DICTATION DATE: 05/18/19 130 KEY ACCOUNT EXECUTIVE: BECKY 05/18/19 130 RPT#: [id number] DC DATE: STATUS: ADM IN [facility] [address] [place] [address] END OF REPORT
--- NOTE | 2019-05-18 14:48 | NUR ---
PT RESTING IN BED WITH EYES CLOSED. NEW BAG OF NS WITH POTASSIUM HUNG AT THIS TIME. NO S/S OF DISTRESS NOTED. BREATHING EVEN AND UNLABORED. CALL LIGHT WITHIN REACH. WATCH TECH IN DOORWAY. WILL CONTINUE TO MONITOR.
--- NOTE | 2019-05-18 18:33 | NUR ---
I have reviewed this patient and I concur with the Shift Assessment completed by the Licensed Practical Nurse today this shift.
--- NOTE | 2019-05-18 18:49 | NUR ---
ADMINISTERED PRN MEDICATION AT THIS TIME FOR ANXIETY. TOLERATED WELL. REQUESTED ICE WATER, PROVIDED PROMPTLY. DENIES ANY OTHER NEEDS. PT IS RESTING COMFORTABLY. WILL CONTINUE TO MONITOR.
[2019-05-18 19:10] VITALS: BP 112/80
--- NOTE | 2019-05-18 19:10 | NUR ---
PATIENT RESTING IN BED WITH NO S/S OF DISTRESS. VSS. PATIENT DENIES NEEDS AT THIS TIME. BED IN LOWEST POSITION AND CALL LIGHT WITHIN REACH. SITTER AT BEDSIDE. ENCOURAGED THE PATIENT TO CALL IF HE HAS NEEDS. WILL CONTINUE TO MONITOR.
[2019-05-19 03:25] VITALS: BP 148/93
[2019-05-19 04:24] LABS: BASOPHILS 0.7 % (0-2); EOSINOPHILS 3.4 % (0-7); HEMATOCRIT 32.3 % (42.0-54.0); HEMOGLOBIN 10.3 g/dL (13.5-17.5); IMMATURE GRANULOCYTES 0.2 % (0-5); LYMPHOCYTES 35.2 % (15-50); MCH 36.1 pg (26.0-34.0); MCHC 31.9 g/dL (31.0-37.0); MCV 113.3 fL (80.0-100.0); MEAN PLATELET VOLUME 9.2 fL (7.4-10.4); MONOCYTES 18.2 % (2-11); NEUTROPHILS 42.3 % (40-80); PLATELET COUNT 189 10x3/uL (130-400); RBC 2.85 10x6/uL (4.20-6.10); RDW 13.8 % (11.5-14.5); WBC 5.6 10x3/uL (4.8-10.8)
[2019-05-19 04:47] LABS: CALCIUM 7.9 mg/dL (8.5-10.1); CARBON DIOXIDE 28.8 mmol/L (21.0-32.0); CHLORIDE - SERUM 101 mmol/L (98-107); CREATININE - SERUM 0.9 mg/dL (0.6-1.3); GLUCOSE 92 mg/dL (74-106); MAGNESIUM - SERUM 1.4 mg/dL (1.8-2.4); PHOSPHOROUS 2.6 mg/dL (2.5-4.9); SODIUM 134 mmol/L (136-145); eGFR NON AFRICAN AMERICAN > 90 mL/min (90-120)
[2019-05-19 04:52] LABS: CALC OSMOLALITY 265 mosm/kg (275-300); POTASSIUM - SERUM 4.7 mmol/L (3.5-5.1); UREA NITROGEN 8 mg/dL (7-18)
[2019-05-19 08:16] VITALS: BP 149/72
[2019-05-19 13:39] VITALS: BP 148/88
--- NOTE | 2019-05-19 14:46 | NUR ---
Nutrition follow-up: Diet: Regular PO intake 75-100% of meals Labs reviewed Wt: 168# RDN following.
--- NOTE | 2019-05-19 16:17 | MORECARE ---
CASE MANAGEMENT DISCHARGE SUMMARY PATIENT: ROSEMARIE DA SILVA UNIT: [id number] ADM DATE: 05/15/19 AGE: 59 : 62 SEX: M ROOM/BED: D.2209 AUTHOR: MELITA ENRIQUE PHYSICIAN: REFERRING PHYSICIAN: HILLARY DANIELS MD DATE OF SERVICE: 05/19/19 Discharge Plan Patient Name: ROSEMARIE DA SILVA Facility: [facility]:[place] : 1960 Planned Disposition: Anticipated Discharge Date: Discharge Date: Expected LOS: Initial Reviewer: [email or web address] Initial Review Date: 05/16/2019 Generated: 05/19/19 5:17 pm Comments DCP- Discharge Planning Updated by [email or web address]: Zamzam Ruiz on 05/18/19 12:[address] Patient Name: ROSEMARIE DA SILVA Admission Status: ER Accout number: [id number] Admission Date: 05-15-2019 : 1960 Admission Diagnosis: Attending: HILLARY DANIELS Current LOS: 2 Anticipated DC Date: Planned Disposition: Primary Insurance: MEDICAID [place] Discharge Planning Comments: CM CALLED [facility]. FAXED CLINICALS TO INITIATE PROCESS. CM WILL FOLLOW NEEDED. Trade Recruiter: Zamzam Ruiz MSN, RN,CM Appended by Zamzam Ruiz on 05/18/2019 8:46 CDT: CM CALLED [facility]ACEMENT. FAXED CLINICALS TO INITIATE PROCESS. CM WILL FOLLOW NEEDED. CM RECIEVED CALL FROM DEANA AT THE TRANSFER CENTER. STATED ALEVISM MAY ACCEPT PATIENT. SENT UPDATED CLINICALS TO THE TRANSFER CENTER. WILL AWAIT PLACEMENT. 05/18/2019 @ 1030 RECIEVED CALL FROM DEANA AT THE TRANSFER CENTER HOLDING A CALL FROM SKYE. CM SPOKE WITH SKYE FROM [facility] STATING THEY WILL ACCEPT THE PATIENT SOON HE IS MEDICALLY STABLE, AND HAS A NEGATIVE COVID SCREENING. SPOKE WITH SAKINA TIAN WITH UPDATE. Last DP export: 05/18/19 12:08 p Patient Name: ROSEMARIE DA SILVA Page 18005 at 1617 All edits/amendments must be made on the electronic document DICTATION DATE: 05/19/191616 CONDENSER WINDER: BECKY 05/19/191616 RPT#: [id number] DC DATE: STATUS: ADM IN [facility] [address] [place] [address] END OF REPORT
[2019-05-19 16:20] VITALS: BP 136/47
--- NOTE | 2019-05-19 16:26 | MORECARE ---
CASE MANAGEMENT DISCHARGE SUMMARY PATIENT: ROSEMARIE DA SILVA UNIT: [id number] ADM DATE: 05/15/19 AGE: 59 : 62 SEX: M ROOM/BED: D.2209 AUTHOR: MELITA ENRIQUE PHYSICIAN: REFERRING PHYSICIAN: HILLARY DANIELS MD DATE OF SERVICE: 05/19/19 Discharge Plan Patient Name: ROSEMARIE DA SILVA Facility: [facility]:[place] : 1960 Planned Disposition: Anticipated Discharge Date: Discharge Date: Expected LOS: Initial Reviewer: [email or web address] Initial Review Date: 05/16/2019 Generated: 05/19/19 5:25 pm Comments DCP- Discharge Planning Updated by [email or web address]: Zamzam Ruiz on 05/18/19 12:[address] Patient Name: ROSEMARIE DA SILVA Admission Status: ER Accout number: [id number] Admission Date: 05-15-2019 : 1960 Admission Diagnosis: Attending: HILLARY DANIELS Current LOS: 2 Anticipated DC Date: Planned Disposition: Primary Insurance: MEDICAID [place] Discharge Planning Comments: CM CALLED [facility]. FAXED CLINICALS TO INITIATE PROCESS. CM WILL FOLLOW NEEDED. Director Perioperative: Zamzam Ruiz MSN, RN,CM Appended by Zamzam Ruiz on 05/18/2019 8:46 CDT: CM CALLED [facility]EMENT. FAXED CLINICALS TO INITIATE PROCESS. CM WILL FOLLOW NEEDED. CM RECIEVED CALL FROM DEANA AT THE [facility] C[facility]. STATED QUAKER MAY ACCEPT PATIENT. SENT UPDATED CLINICALS TO THE [facility]ER CENTER. WILL AWAIT PLACEMENT. 05/18/2019 @ 1030 RECIEVED CALL FROM DEANA AT THE [facility] HOLDING A CALL FROM SKYE. CM SPOKE WITH SKYE FROM [facility] STATING THEY WILL ACCEPT THE PATIENT SOON HE IS MEDICALLY STABLE, AND HAS A NEGATIVE COVID SCREENING. SPOKE WITH SAKINA TIAN WITH UPDATE. Last DP export: 05/19/19 3:17 p Patient Name: ROSEMARIE DA SILVA Page [phone] at 1626 All edits/amendments must be made on the electronic document DICTATION DATE: 05/19/191624 SHOE HANDLER: BECKY 05/19/191624 RPT#: [id number] DC DATE: STATUS: ADM IN [facility] [address] [place] [address] END OF REPORT
[2019-05-19] MEDS ORDERED: ALBUTEROL2.5 MG/3 M UPD (16:42)
[2019-05-19] MEDS ORDERED: ATIVAN IV (16:42)
[2019-05-19] MEDS ORDERED: Nicoderm [PBKC] TRANSDERM (16:42)
[2019-05-19] MEDS ORDERED: OMNICEF300 MG PO (16:43)
[2019-05-19] MEDS ORDERED: LIBRIUM25 MG PO (16:43)
--- NOTE | 2019-05-19 19:03 | NUR ---
PATIENT STATES HE IS NOT AGREEABLE TO TRANSFER TO [facility]
[2019-05-19 20:00] VITALS: BP 124/79
--- NOTE | 2019-05-19 20:00 | NUR ---
A&O X 4. PT STATES HE IS NOT AND NEVER WAS SUICIDAL. STATES HE ACCIDENTLY OVERDOSED ON AMBIEN WHEN HE WAS UNABLE TO SLEEP AND REPORTS ETOH USE. PT REFUSING TRANSFER TO [facility]. REPORTS IT HAS BEEN DISCUSSED WITH PCP THAT HE WILL BE SENT TO [facility]. ALSO, STATES IT HAS BEEN ARRANGED AND APPROVED AND THE FACILITY WILL RECEIVE HIM ONCE HE IS MEDICALLY STABLE. ERIC GUTIERREZ NOTIFIED, AND DISCHARGED HELD PER GLORIA. [facility]ARTH[facility] NURSE, ADRIAN GORDON, NOTIFIED. EMS DRIVER NOTIFIED. REASSURED PT HIS DISCHARGE IS HELD. CONTINUE PLAN OF CARE.
--- NOTE | 2019-05-19 22:00 | NUR ---
20G IV TO LEFT FOREARM OUT, CATHETER INTACT. 22G IV RESITED TO RIGHT UPPER ARM, 2ND ATTEMPT, PATENT. BLOOD RETURN NOTED, FLUSHES WITH EASE. PT REQUESTS PRN ATIVAN AND LARGE CUP OF APPLE JUICE. NO FURTHER NEEDS VOICED AT THIS TIME, WILL CONTINUE TO MONITOR.
[2019-05-20] VITALS: BP 138/85
[2019-05-20 04:00] VITALS: BP 141/86
--- NOTE | 2019-05-20 04:45 | NUR ---
I have reviewed this patient and I concur with the Shift Assessment completed by the Licensed Practical Nurse today this shift.
[2019-05-20 04:57] LABS: ALBUMIN 2.5 g/dL (3.4-5.0); ALKALINE PHOSPHATASE 87 U/L (30-120); ALT (SGPT) 49 U/L (10-68); BILIRUBIN - TOTAL 0.31 mg/dL (0.2-1.3); CALC OSMOLALITY 263 mosm/kg (275-300); CALCIUM 8.1 mg/dL (8.5-10.1); CARBON DIOXIDE 30.7 mmol/L (21.0-32.0); CHLORIDE - SERUM 99 mmol/L (98-107); GLUCOSE 97 mg/dL (74-106); MAGNESIUM - SERUM 1.2 mg/dL (1.8-2.4); POTASSIUM - SERUM 4.8 mmol/L (3.5-5.1); PROTEIN - SERUM 6.1 g/dL (6.4-8.2); SODIUM 133 mmol/L (136-145); UREA NITROGEN 7 mg/dL (7-18); eGFR NON AFRICAN AMERICAN 81 mL/min (90-120)
[2019-05-20 05:02] LABS: PHOSPHOROUS 3.7 mg/dL (2.5-4.9)
[2019-05-20 05:18] LABS: HEMATOCRIT 32.4 % (42.0-54.0); HEMOGLOBIN 10.5 g/dL (13.5-17.5); MCH 36.1 pg (26.0-34.0); MCHC 32.4 g/dL (31.0-37.0); MEAN PLATELET VOLUME 9.8 fL (7.4-10.4); PLATELET COUNT 206 10x3/uL (130-400); RBC 2.91 10x6/uL (4.20-6.10); RDW 13.5 % (11.5-14.5); WBC 4.2 10x3/uL (4.8-10.8)
[2019-05-20 05:24] LABS: MCV 111.3 fL (80.0-100.0)
[2019-05-20 08:55] VITALS: BP 125/74
[2019-05-20 10:54] LABS: BASOPHILS 1 % (0-2); EOSINOPHILS 7 % (0-7); LYMPHOCYTES 29 % (15-50); MONOCYTES 19 % (2-11); NEUTROPHILS 44 % (40-80)
[2019-05-20 10:55] LABS: PLATELET ESTIMATE NORMAL; ROULEAUX OCC
[2019-05-20 16:55] VITALS: BP 129/71
--- NOTE | 2019-05-20 17:39 | MORECARE ---
CASE MANAGEMENT DISCHARGE SUMMARY PATIENT: ROSEMARIE DA SILVA UNIT: [id number] ADM DATE: 05/15/19 AGE: 59 : 62 SEX: M ROOM/BED: D.2209 AUTHOR: MELITA ENRIQUE PHYSICIAN: REFERRING PHYSICIAN: HILLARY DANIELS MD DATE OF SERVICE: 05/20/19 Discharge Plan Patient Name: ROSEMARIE DA SILVA Facility: [facility]:[place] : 1960 Planned Disposition: Anticipated Discharge Date: Discharge Date: Expected LOS: Initial Reviewer: [email or web address] Initial Review Date: 05/16/2019 Generated: 05/20/19 6:38 pm DCP- Discharge Planning Updated by [email or web address]: Zamzam Ruiz on 05/18/19 12:[address] Patient Name: ROSEMARIE DA SILVA Admission Status: ER Accout number: [id number] Admission Date: 05-15-2019 : 1960 Admission Diagnosis: Attending: HILLARY DANIELS Current LOS: 2 Anticipated DC Date: Planned Disposition: Primary Insurance: MEDICAID [place] Discharge Planning Comments: CM CALLED [facility] FOR [facility]CH [facility]ACEMENT. FAXED CLINICALS TO INITIATE PROCESS. CM WILL FOLLOW NEEDED. Building Contractor: Zamzam Ruiz MSN, RN,CM Appended by Zamzam Ruiz on 05/18/2019 8:46 CDT: CM CALLED [facility] FOR PS[facility]CH PLACEMENT. FAXED CLINICALS TO INITIATE PROCESS. CM WILL FOLLOW NEEDED. CM RECIEVED CALL FROM DEANA AT THE TRANSFER CENTER. STATED [facility] MAY ACCEPT PATIENT. SENT UPDATED CLINICALS TO THE TRANSFER CENTER. WILL AWAIT PLACEMENT. 05/18/2019 @ 1030 RECIEVED CALL FROM DEANA AT THE TRANSFER CENTER HOLDING A CALL FROM SKYE. CM SPOKE WITH SKYE FROM [facility] STATING THEY WILL ACCEPT THE PATIENT SOON HE IS MEDICALLY STABLE, AND HAS A NEGATIVE COVID SCREENING. SPOKE WITH SAKINA TIAN WITH UPDATE. Last DP export: 05/19/19 3:26 p Patient Name: ROSEMARIE DA SILVA Page [id number] at 8814 All edits/amendments must be made on the electronic document DICTATION DATE: 05/20/191737 PROMOTIONS ASSISTANT SALES MARKETING: BECKY 05/20/191737 RPT#: [id number] PR DATE: STATUS: ADM IN [facility] [address] [place] [address] END OF REPORT
--- NOTE | 2019-05-20 17:53 | MORECARE ---
CASE MANAGEMENT DISCHARGE SUMMARY PATIENT: ROSEMARIE DA SILVA UNIT: [id number] ADM DATE: 05/15/19 AGE: 59 : 62 SEX: M ROOM/BED: D.2209 AUTHOR: IVADOC PHYSICIAN: REFERRING PHYSICIAN: HILLARY DANIELS MD DATE OF SERVICE: 05/20/19 Discharge Plan Patient Name: ROSEMARIE DA SILVA Facility: [facility]:[place] : 1960 Planned Disposition: Anticipated Discharge Date: Discharge Date: Expected LOS: Initial Reviewer: [email or web address] Initial Review Date: 05/16/2019 Generated: 05/20/19 6:52 pm DCP- Discharge Planning Updated by [email or web address]: Paola Alexander on 05/20/19 4:[address] Patient Name: ROSEMARIE DA SILVA Admission Status: ER Accout number: [id number] Admission Date: 05-15-2019 : 1960 Admission Diagnosis: Attending: HILLARY DANIELS Current LOS: 5 Anticipated DC Date: Planned Disposition: Primary Insurance: MEDICAID [place] Discharge Planning Comments: Physician recommends inpatient psych placement. Patient is [facility]. Patient is refusing any inpatient psych facility. Physician was notified and patient placed on 72 hr. hold. Documentation faxed to divorce attorney office. After patient thought it over he now is agreeing to placement at [facility]. [facility] is willing to accept patient and report has been called per nursing and [facility] has been notified of transfer. Documentation placed in patients hard chart. CM will continue to follow and assist as needed with discharge planning / needs. Post Doc Fellowship: Paola Alexander DCP- Discharge Planning Updated by [email or web address]: Zamzam Ruiz on 05/18/19 12:[address] Patient Name: ROSEMARIE DA SILVA Admission Status: ER Accout number: [id number] Admission Date: 05-15-2019 : 1960 Admission Diagnosis: Attending: HILLARY DANIELS Current LOS: 2 Anticipated DC Date: Planned Disposition: Primary Insurance: MEDICAID [place] Discharge Planning Comments: CM CALLED [facility] FOR PSYCH PLACEMENT. FAXED CLINICALS TO INITIATE PROCESS. CM WILL FOLLOW NEEDED. Post Doc Fellowship: Zamzam Ruiz MSN, RN,CM Appended by Zamzam Ruiz on 05/18/2019 8:46 CDT: CM CALLED [facility]ENTER FOR PSYCH PLACEMENT. FAXED CLINICALS TO INITIATE PROCESS. CM WILL FOLLOW NEEDED. CM RECIEVED CALL FROM DEANA AT THE TRANSFER CENTER. STATED [facility] MAY ACCEPT PATIENT. SENT UPDATED CLINICALS TO THE TRANSFER CENTER. WILL AWAIT PLACEMENT. 05/18/2019 @ 1030 RECIEVED CALL FROM DEANA AT THE TRANSFER CENTER HOLDING A CALL FROM [facility]. CM SPOKE WITH SKYE FROM [facility] STATING THEY WILL ACCEPT THE PATIENT SOON HE IS MEDICALLY STABLE, AND HAS A NEGATIVE COVID SCREENING. SPOKE WITH SAKINA TIAN WITH UPDATE. 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
--- NOTE | 2019-05-20 18:51 | NUR ---
I have reviewed this patient and I concur with the Shift Assessment completed by the Licensed Practical Nurse today this shift.
--- NOTE | 2019-05-20 20:39 | MORECARE ---
CASE MANAGEMENT DISCHARGE SUMMARY PATIENT: ROSEMARIE DA SILVA UNIT: [id number] ADM DATE: 05/15/19 AGE: 59 : 62 SEX: M ROOM/BED: D.2209 AUTHOR: IVA,DOC PHYSICIAN: REFERRING PHYSICIAN: HILLARY DANIELS MD DATE OF SERVICE: 05/20/19 Discharge Plan Patient Name: ROSEMARIE DA SILVA Facility: [facility]:[place] : 1960 Planned Disposition: Anticipated Discharge Date: Discharge Date: 05/20/2019 Expected LOS: Initial Reviewer: [email or web address] Initial Review Date: 05/16/2019 Generated: 05/20/19 9:39 pm DCP- Discharge Planning Updated by [email or web address]: Paola Alexander on 05/20/19 4:[address] Patient Name: ROSEMARIE DA SILVA Admission Status: ER Accout number: [id number] Admission Date: 05-15-2019 : 1960 Admission Diagnosis: Attending: HILLARY DANIELS Current LOS: 5 Anticipated DC Date: Planned Disposition: Primary Insurance: MEDICAID [place] Discharge Planning Comments: Physician recommends inpatient psych placement. Patient is wanting to go into [facility]. Patient is refusing any inpatient psych facility. Physician was notified and patient placed on 72 hr. hold. 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 After patient thought it over he now is agreeing to placement at [facility]. [facility] is willing to accept patient and report has been called per nursing and [facility] has been notified of transfer. Documentation placed in patients hard chart. CM will continue to follow and assist as needed with discharge planning / needs. Chief Of Police: Paola Alexander DCP- Discharge Planning Updated by [email or web address]: Zamzam Ruiz on 05/18/19 12:[address] Patient Name: ROSEMARIE DA SILVA Admission Status: ER Accout number: [id number] Admission Date: 05-15-2019 : 1960 Admission Diagnosis: Attending: HILLARY DANIELS Current LOS: 2 Anticipated DC Date: Planned Disposition: Primary Insurance: MEDICAID [place] Discharge Planning Comments: CM CALLED TRAN[facility]ER CENTER FOR PSYCH PLACEMENT. FAXED CLINICALS TO INITIATE PROCESS. CM WILL FOLLOW NEEDED. Chief Of Police: Zamzam Ruiz MSN, RN,CM Appended by Zamzam Ruiz on 05/18/2019 8:46 CDT: CM CALLED TRANSFER CENTER FOR PSYCH PLACEMENT. FAXED CLINICALS TO INITIATE PROCESS. CM WILL FOLLOW NEEDED. CM RECIEVED CALL FROM DEANA AT THE TRANSFER CENTER. STATED [facility] MAY ACCEPT PATIENT. SENT UPDATED CLINICALS TO THE TRANSFER CENTER. WILL AWAIT PLACEMENT. 05/18/2019 @ 1030 RECIEVED CALL FROM DEANA AT THE TRANSFER CENTER HOLDING A CALL FROM [facility]. CM SPOKE WITH SKYE FROM [facility] STATING THEY WILL ACCEPT THE PATIENT SOON HE IS MEDICALLY STABLE, AND HAS A NEGATIVE COVID SCREENING. SPOKE WITH SAKINA TIAN WITH UPDATE. 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
== END 2019-05-20 20:32 | disposition short-term general hospital (02) ==
LOC: D.ER 22:30 → D.ICU 22:50 → OBSVTIME 22:50 → D.MS 05-16 15:08
PROVIDERS: Emergency Medicine; ADMIT Internal Medicine Nephrology; ATTEND Internal Medicine Nephrology
DX: T42.6X2A Poisoning by other antiepileptic and sedative-hypnotic drugs, intentional self-harm, initial encounter (principal); G92 Toxic encephalopathy; F10.231 Alcohol dependence with withdrawal delirium; D53.9 Nutritional anemia, unspecified; E87.1 Hypo-osmolality and hyponatremia; E87.6 Hypokalemia; E83.42 Hypomagnesemia; F32.9 Major depressive disorder, single episode, unspecified; F17.203 Nicotine dependence unspecified, with withdrawal